=== PATIENT | female | born 1975 | race Caucasian/White ===

== ENCOUNTER 2018-10-26 08:20 | Emergency (ER) | payer BC ==
[2018-10-26] MEDS ORDERED: Ondansetron 4 MG/2 ML SDV IVPUSH ONE (08:51)
[2018-10-26] MEDS ORDERED: Famotidine 20 MG/2 ML SDV IVPUSH ONE (08:51)
[2018-10-26] MEDS ORDERED: Lactated Ringers 1,000 ML IV ONE (08:51)
[2018-10-26] MEDS ORDERED: Pantoprazole 40 MG Vial IVPUSH ONE (08:51)
--- NOTE | 2018-10-26 08:51 | EDM.PDOC ---
ED HPI GENERAL MEDICAL PROBLEM - General Chief Complaint: General Stated Complaint: right hip/abd pain Time Seen by Provider: 10/26/18 08:45 Source of Information: Reports: Patient, Family (), Old Records ([facility] chart/EMR), Other ([facility]MR) History Limitations: Reports: No Limitations - History of Present Illness INITIAL COMMENTS - FREE TEXT/NARRATIVE: The patient was brought to the emergency room via transport vehicle from [facility] for evaluation of progressive intermittent right-sided colic type symptoms with symptoms starting after she woke up at about 6 AM this morning. She currently rates her discomfort at 8/10. She denies any current gross hematuria or other UTI symptoms with history of recurrent urolithiasis in the past as below. She does have some mild nausea and diaphoresis with the above episodes similar to her previous attacks. No recent history of other abdominal pain, heartburn, emesis, diarrhea, melena, gross hematochezia, or any food intolerance, including fatty foods, etc.. The patient denies any chest pain/pressure, heart flutter, dizziness, orthostasis, orthopnea, diaphoresis, paresthesias, recent decreased exercise tolerance, or any other anginal-type symptoms. The patient also denies any recent fever, cough, wheezing, dyspnea, etc., although she has had some mild URI symptoms during the last week, which are improving. Onset: Today, Sudden Onset Date: 10/26/18 Onset Time: 06:00 Duration: Colic, Getting Worse, Intermittent Location: Reports: Abdomen. Denies: Head, Face, Neck, Chest, Back, Pelvis, Upper Extremity, Left, Upper Extremity, Right, Lower Extremity, Left, Lower Extremity, Right, Radiates to Quality: Reports: Same as Previous Episode, Sharp, Stabbing Severity: Moderate Improves with: Reports: None Worsens with: Reports: None Context: Reports: Other (As above). Denies: Sick Contact, Trauma Associated Symptoms: Reports: Nausea/Vomiting (No emesis). Denies: Confusion, Chest Pain, Cough, Diaphoresis, Fever/Chills, Headaches, Loss of Appetite, Malaise, Shortness of Breath, Syncope, Weakness Treatments NURSE PRACTITIONER: Reports: Other (see below) (None) Right Hip/abd Pain Score (Numeric/FACES): 8 (Right CVA) - Related Data Allergies Allergy/AdvReac Type Severity Reaction Status Date / Time hydralazine Allergy Hives Verified 10/26/18 08:49 lisinopril Allergy Cough Verified 10/26/18 08:49 Penicillins Allergy Hives Verified 10/26/18 08:28 Home Meds: Home Meds Losartan [Cozaar] 25 mg PO DAILY 10/26/18 [History] Metoprolol Tartrate [Lopressor] 12.5 mg PO Q12HR 10/26/18 [History] Tamsulosin [Tamsulosin 24 Hr] 0.4 mg PO DAILY #7 cap.er 10/26/18 [Rx] hydroCHLOROthiazide [Hydrochlorothiazide] 25 mg PO DAILY 10/26/18 [History] traMADol [Ultram] 50 mg PO Q4H PRN #10 tab 10/26/18 [Rx] Past Medical History HEENT History: Reports: Allergic Rhinitis, Impaired Vision, Other (See Below). Denies: Cataract, Glaucoma, Macular Degeneration, Otitis Media, Retinal Detachment Other HEENT History: She wears soft contact lenses and glasses. Cardiovascular History: Reports: Arrhythmia, Heart Murmur, High Cholesterol, Hypertension, Other (See Below). Denies: Afib, Aneurysm, Blood Clots/VTE/DVT, CAD, Heart Failure, CA, Pacemaker, PVD, Syncope Other Cardiovascular History: Complete right bundle branch block, both supraventricular and ventricular couplets with PACs, PVCs, trigeminy, and triplets. Mild diffuse valvular disease by echocardiogram 2017 with moderate aortic valve stenosis by clinical exam on 10/26/18. Dyslipidemia. Respiratory History: Reports: Intubation, Previous. Denies: Asthma, Bronchitis , Recurrent, COPD, Intubation, Difficult, PE, Pneumonia, Recurrent, Pneumothorax , Sleep Apnea, TB Gastrointestinal History: Reports: GERD. Denies: Celiac Disease, Cholelithiasis , Chronic Constipation, Chronic Diarrhea, Colon Polyp, Diverticulosis, Fecal Incontinence, Hepatitis, Inflammatory Bowel Disease, Irritable Bowel Syndrome, Jaundice, Pancreatitis, PUD Genitourinary History: Reports: Renal Calculus, Other (See Below). Denies: Acute Renal Failure, Chronic Renal Insuffiency, STD, Urinary Incontinence, UTI, Recurrent Other Genitourinary History: Recurrent right-sided urolithiasis with initial episode in 2005 requiring ablation as below and last episode in 2008 also requiring ablation. Stones were 1.31.5 cm in diameter. SIPHON OPERATOR History: Reports: , Other (See Below) : 3 Para: 3 LMP (Approximate): Other (See Below) Other SIPHON OPERATOR History: Current IUD. Preclampsia with last with secondary induction at 36 weeks gestation. Note gestational diabetes with first . Otherwise normal spontaneous vaginal deliveries. History of benign endometrioma requiring excision as below. Musculoskeletal History: Reports: Arthritis, Back Pain, Chronic, Osteoarthritis , Other (See Below). Denies: Fracture, Gout, Neck Pain, Chronic, RA, SLE Other Musculoskeletal History: Spinal stenosis and disc prolapse with left- sided radiculopathy requiring surgery as below. 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 Neurological History: Reports: Headaches, Chronic, Migraines. Denies: Cerebral Aneurysms, Concussion, CVA, Head Trauma, MS, Neuropathy, Diabetic, Neuropathy, Peripheral, Parkinson's, Seizure, TIA, Vertigo Psychiatric History: Reports: Anxiety, Depression. Denies: Abuse, Victim of, ADD, ADHD, Addiction, Psych Hospitalization(s), PTSD, Suicide Attempt, Suicidal Ideation Endocrine/Metabolic History: Reports: Diabetes, Gestational, Multinodular Thyroid, Obesity/BMI 30+, Other (See Below). Denies: Diabetes, Type I, Diabetes , Type II, Diabetes Mellitus, Type 3c, Hypothyroidism, IDDM Other Endocrine/Metabolic History: Benign thyroid nodules with subclinical hyperthyroidism. Hypoalbuminemia. Hematologic History: Reports: None. Denies: Anemia, Blood Transfusion(s), Iron Deficiency Immunologic History: Reports: None. Denies: AIDS, HIV, SLE Oncologic (Cancer) History: Reports: Basal Cell Carcinoma. Denies: Cervix, Colon, Hodgkin's Lymphoma, Leukemia, Lymphoma, Malignant Melanoma, Non-Hodgkin' s Lymphoma, Squamous Cell Carcinoma, Uterine Other Oncologic History: Basal cell carcinoma of the right cervical region and right thigh with excisions as below. Dermatologic History: Reports: Eczema, Other (See Below). Denies: Psoriasis Other Dermatologic History: Eczema as a child. Multiple papillomas. Basal cell carcinoma as above. - Infectious Disease History Infectious Disease History: Reports: Chicken Pox. Denies: C-Difficile, Measles , Meningitis, Mononucleosis, MRSA, Mumps, Pertussis (Whooping Cough), Rheumatic Fever, Rubella, Scarlet Fever, Shingles, TB, VRE - Past Surgical History Head Surgeries/Procedures: Reports: None HEENT Surgical History: Reports: Oral Surgery, Other (See Below). Denies: Adenoidectomy, Cataract Surgery, Eye Surgery, Laser Surgery, LASIK, Myringotomy w Tube(s), Naso-Sinus Surgery, Tonsillectomy Other HEENT Surgeries/Procedures: [place] teeth extraction x 4 in December 1990. Cardiovascular Surgical History: Reports: Varicose, Other (See Below) Other Cardiovascular Surgeries/Procedures: Cauterization of the varicose veins in the right leg in her late 20s. Respiratory Surgical History: Reports: None. Denies: Thoracentesis GI Surgical History: Reports: None. Denies: Appendectomy, Cholecystectomy, Colonoscopy, EGD, Hernia, Abdominal, Hernia, Inguinal, Hernia Repair/Other Female Surgical History: Reports: Breast Biopsy, Breast Reduction, Lithotripsy/ESWL, Other (See Below). Denies: Breast Reconstruction, Section, Cervical Cryotherapy, D&C, Dilitation & Evacuation, Salpingo- Oophorectomy, Tubal Ligation Other Female Surgeries/Procedures: Intrauterine excision of benign endometrioma in 1992. Right-sided lithotripsy in 2005 and 2008 with stent placement on those occasions. Bilateral breast reduction in 2009 with subsequent apparent repeat procedure required in 2011 secondary to infection. Left breast biopsy on 04/07/14 with left-sided breast lumpectomy on 06/22/13 both for benign disease. Endocrine Surgical History: Reports: Thyroid Biopsy, Other (See Below) Other Endocrine Surgeries/Procedures: Ultrasound guided thyroid biopsy on . Neurological Surgical History: Reports: Discectomy, Lumbar Spine, Spinal Fusion , Other (See Below). Denies: C-Spine, Laminectomy, Sacral Spine, Scoliosis, Thoracic Spine, Vertebroplasty Other Neurological Surgeries/Procedures: Spinal fusion from L2-L4 with concomitant discectomy on 11/11/17. Musculoskeletal Surgical History: Reports: None. Denies: Arthroscopic Procedure , Carpal Tunnel, Ganglion Cyst, Joint Replacement, ORIF, Shoulder Surgery Oncologic Surgical History: Reports: Other (See Below) Other Oncologic Surgeries/Procedures: Skin excisions of basal cell carcinoma as below. Dermatological Surgical History: Reports: Skin Biopsy, Other (See Below) Other Dermatological Surgeries/Procedures: Excision of basal cell carcinoma using the Mohs procedure from the right cervical region in 2016 with excision of basal cell carcinoma from the mid lateral right thigh on 05/12/13. Otherwise multiple benign biopsies and shave biopsies for benign disease. - Past Imaging History Past Imaging History: Reports: Cardiac Echo (Last echocardiogram on 11/19/16 with benign valvular disease and ejection fraction of 70%. Previous echocardiogram on 02/06/12. Otherwise stress echocardiogram as below.), CAT Scan (CT of the lumbar spine on 10/28/17. CT of the brain on 05/08/15. CT of the abdomen and pelvis on 02/11/06.), Event Monitor (02/19/17), Mammogram (Last on 05/14.), MRI (Lumbar spine on 07/16/17.), Stress Testing (Negative stress echocardiogram on 02/16/12.), Ultrasound (Thyroid ultrasound with concomitant biopsy on 06/01/17. Pelvic ultrasound on 10/25/14.), Other (See Below) (I-123 thyroid scan on 01/15/17.) Social & Family History - Family History HEENT: Reports: Glaucoma, Other (See Below). Denies: Macular Degeneration, Retinal Detachment Other HEENT Family History: Maternal grandmother with glaucoma. Cardiac: Reports: CAD, Heart Murmur, Hypertension, Stent, Other (See Below). Denies: Afib, Aneurysm, Arrhythmia, Blood Clots/VTE/DVT, Bypass, Heart Failure, High Cholesterol, CA, Pacemaker, PVD/COD Other Cardiac Family History: Maternal uncle with PTCA/stent 1 and valve replacement in his early 50s. Father with hypertension and unknown cardiac murmur. Respiratory: Reports: None. Denies: Asthma, COPD, PE, Pneumothorax, Sleep Apnea GI: Reports: None. Denies: Celiac Disease, Cholelithiasis, Colon Polyps, GERD, GI bleed, Inflammatory Bowel Disease, Irritable Bowel Syndrome, PUD : Reports: Renal Calculus, Other (See Below). Denies: Dialysis, Renal Disease /Insufficiency Other Family History: Maternal uncle with urolithiasis. OBGYN: Reports: None. Denies: Endometriosis, Recurrent Spontaneous Musculoskeletal: Reports: None. Denies: Arthritis, Gout, RA, SLE Neurological: Reports: None. Denies: Alzheimers Disease, CVA, Dementia, Migraines, MS, Parkinson's, Seizure, TIA Psychiatric: Reports: Anxiety, Depression, Psych Hospitalization(s), Suicide Attempt, Other (See Below). Denies: Abuse, Victim of, ADD, ADHD, PTSD Other Psychiatric Family History: Maternal with successful suicide in his early 20s Endocrine/Metabolic: Reports: Diabetes, type II, Other (See Below). Denies: Diabetes, Gestational, Diabetes, Type I, Diabetes Mellitus, Type 3c, Hypothyroidism, IDDM Other Endocrine/Metabolic Family History: Paternal grandfather and maternal uncle with AODM. Sister with hyperthyroidism. Hematologic: Reports: None. Denies: Anemia, SLE Immunologic: Reports: None. Denies: AIDS, HIV, SLE Dermatologic: Reports: None. Denies: Eczema, Psoriasis Oncologic: Reports: Leukemia, Other (See Below). Denies: Breast, Cervix, Colon , Hodgkin's Lymphoma, Lung, Lymphoma, Non-Hodgkin's Lymphoma, Ovarian, Uterine Other Oncologic Family History: Maternal uncle with fatal leukemia at age 72. - Tobacco Use Smoking Status *Q: Never Smoker Tobacco Use Within Last Twelve Months: No Used Tobacco, but Quit: No Smoking Cessation Information Provided To Patient: No Second Hand Smoke Exposure: Yes Source of Second Hand Smoke Exposure: smokes Second Hand Smoke Education Provided: Yes - Caffeine Use Caffeine Use: Reports: Coffee (2 cups per day), Tea (2 cups per week). Denies: Energy Drinks, Soda - Alcohol Use Alcohol Use History: Yes Days Per Week of Alcohol Use: 2 Number of Drinks Per Day: 3 Number of Drinks Per Day Comment: Usually wine. No previous DWIs, problems with alcohol abuse, etc. Total Drinks Per Week: 6 Alcohol Use in Last Twelve Months: Yes Alcohol Use Frequency: Weekly - Recreational Drug Use Recreational Drug Use: No Drug Use in Last 12 Months: No Recreational Drug Type: Reports: Marijuana/Hashish (Use between ages 17 and 18.) . 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 ED EXAM, GENERAL - Physical Exam Exam: See Below Exam Limited By: No Limitations General Appearance: Alert, WD/WN, No Apparent Distress Eye Exam: Bilateral Eye: EOMI, Normal Inspection (No nystagmus. Soft contact lenses bilaterally), PERRL Ears: Normal External Exam, Normal Canal, Hearing Grossly Normal, Normal TMs Nose: Normal Inspection, Normal Mucosa, No Blood Throat/Mouth: Normal Inspection, Normal Lips, Normal Teeth, Normal Gums, Normal Oropharynx, Normal Voice, No Airway Compromise. No: Dysphagia, Perioral Cyanosis Head: Atraumatic, Normocephalic. No: Facial Swelling, Facial Tenderness, Sinus Tenderness Neck: Supple, Non-Tender, Full Range of Motion, Carotid Bruit (Probable bilateral mild to moderate transmitted heart sounds). No: Lymphadenopathy (L), Lymphadenopathy (R), Thyromegaly Respiratory/Chest: No Respiratory Distress, Lungs Clear, Normal Breath Sounds, No Accessory Muscle Use, Chest Non-Tender. No: Pleural Rub, Retractions Cardiovascular: Normal Peripheral Pulses, No Edema, No Gallop, No JVD, No Rub, Bradycardia (Regular rhythm), Systolic Murmur (23/6 at the aortic valve). No: Diastolic Murmur, Gallop/S3, Gallop/S4, Extra Beats (At time of exam), Friction Rub Peripheral Pulses: 2+: Radial (L), Radial (R), Dorsalis Pedis (L), Dorsalis Pedis (R) GI/Abdominal: Normal Bowel Sounds, No Organomegaly, No Distention, No Abnormal Bruit, No Mass, Pelvis Stable, Tender (Mild nonspecific diffuse palpation pain including the right CVA area). No: Guarding, Rigid, Rebound (Female) Exam: Deferred Rectal (Female) Exam: Deferred Back Exam: Full Range of Motion, CVA Tenderness (R) (As above). No: CVA Tenderness (L), Muscle Spasm, Paraspinal Tenderness, Vertebral Tenderness Extremities: Normal Inspection, Normal Range of Motion, Non-Tender, No Pedal Edema, Normal Capillary Refill. No: Elder's Sign Neurological: Alert, Oriented, CN II-XII Intact, Normal Cognition, Normal Gait, Normal Reflexes (Negative Babinski's), No Motor/Sensory Deficits Psychiatric: Normal Affect, Normal Mood Skin Exam: Warm, Dry, Intact, Normal Color, No Rash, Stud(s) (Auricular bilateral), Other (Multiple benign papillomas particularly in the facial region) . No: Wound/Incision Lymphatic: No Adenopathy Course - Vital Signs Last Recorded V/S: Last Vital Signs Temp 36.8 C 10/26/18 08:20 Pulse 52 L 10/26/18 11:36 Resp 13 10/26/18 11:36 BP 123/81 10/26/18 11:36 Pulse Ox 97 10/26/18 11:36 Vital Signs - 24 hr 10/26/18 10/26/18 10/26/18 08:20 08:38 08:51 Temperature [ 36.8 C Oral] Pulse, 53 L 54 L 55 L Peripheral [ Right Brachial] Respiratory 20 20 20 Rate Blood Pressure 185/100 H 159/97 H 156/100 H [Right Upper Arm] O2 Sat by Pulse 99 96 97 Oximetry 10/26/18 10/26/18 10/26/18 09:06 09:21 09:36 Temperature [ Oral] Pulse, 56 L 56 L 68 Peripheral [ Right Brachial] Respiratory 18 18 18 Rate Blood Pressure 154/95 H 148/94 H 122/90 [Right Upper Arm] O2 Sat by Pulse 97 96 97 Oximetry 10/26/18 10/26/18 10/26/18 10:06 10:36 11:06 Temperature [ Oral] Pulse, 56 L 56 L 55 L Peripheral [ Right Brachial] Respiratory 14 16 13 Rate Blood Pressure 146/91 H 159/80 H 139/83 [Right Upper Arm] O2 Sat by Pulse 98 98 98 Oximetry 10/26/18 11:36 Temperature [ Oral] Pulse, 52 L Peripheral [ Right Brachial] Respiratory 13 Rate Blood Pressure 123/81 [Right Upper Arm] O2 Sat by Pulse 97 Oximetry - Orders/Labs/Meds Orders: Active Orders 24 hr Category Date Time Status Cardiac Monitoring [RC] . DIRECTED Care 10/26/18 09:24 Active Peripheral IV Care [RC] . DIRECTED Care 10/26/18 08:51 Active Nothing Per Oral Diet [DIET] Diet 10/26/18 Breakfast Active Abdomen Pelvis wo Cont [CT] Stat Exams 10/26/18 08:59 Taken CULTURE URINE [RM] Stat Lab 10/26/18 09:00 Received Sodium Chloride 0.9% [Saline Flush] Med 10/26/18 08:51 Active 10 ml FLUSH ASDIRECTED PRN Obtain Past Medical Record [OM.PC] Urgent Oth 10/26/18 08:51 Active Peripheral IV Insertion Adult [OM.PC] Stat Oth 10/26/18 08:51 Ordered Resuscitation Status Stat Resus Stat 10/26/18 08:51 Ordered Medication Orders Sodium Chloride (Saline Flush) 10 ml FLUSH ASDIRECTED PRN PRN Reason: Keep Vein Open Last Admin: 10/26/18 09:31 Dose: 10 ml Admin: 10/26/18 09:26 Dose: 10 ml Labs: Laboratory Tests 10/26/18 10/26/18 10/26/18 Range/Units 09:00 09:03 09:03 WBC 13.0 H (4.0-10.2) K/uL RBC 5.18 H (3.77-5.09) M/uL Hgb 16.5 H (11.7-15.5) g/dL Hct 49.7 H (34.0-46.0) % MCV 95.9 (84.0-98.0) fL MCH 31.9 (28.2-33.3) pg MCHC 33.2 (31.7-36.0) g/dL RDW 14.5 H (11.2-14.1) % Plt Count 159 (150-350) K/uL Neut % (Auto) 82.8 H (45.0-80.0) % Lymph % (Auto) 9.3 L (10.0-50.0) % [place] % (Auto) 7.1 (2.0-14.0) % Eos % (Auto) 0.6 (0.0-5.0) % Baso % (Auto) 0.2 (0.0-2.0) % Neut # (Auto) 10.75 H (1.40-7.00) K/uL Lymph # (Auto) 1.21 (0.50-3.50) K/uL [place] # (Auto) 0.92 (0.00-1.00) K/uL Eos # (Auto) 0.08 (0.00-0.50) K/uL Baso # (Auto) 0.03 (0.00-0.20) K/uL PT (9.5-12.0) SEC INR APTT (21.0-31.3) SEC Sodium (136-145) mmol/L Potassium (3.5-5.1) mmol/L Chloride (98-107) mmol/L Carbon Dioxide (21.0-32.0) mmol/L BUN (7-18) mg/dL Creatinine (0.51-1.17) mg/dL Est Cr Clr Drug Dosing mL/min Estimated GFR (MDRD) mL/min Glucose (74-106) mg/dL Lactic Acid (0.4-2.0) mmol/L Uric Acid (2.6-7.2) mg/dL Calcium (8.5-10.1) mg/dL Magnesium (1.8-2.4) mg/dL Total Bilirubin (0.2-1.0) mg/dL AST (15-37) U/L ALT (12-78) U/L Alkaline Phosphatase (46-116) IU/L Total Protein (6.4-8.2) g/dL Albumin (3.4-5.0) g/dL Amylase 37 (25-115) U/L Lipase (73-393) U/L HCG, Qual (NEGATIVE) Specimen Type Urinvoid Urine Color Yellow Urine Appearance Slightly cloudy Urine pH 6.5 (5.0-9.0) Ur Specific [place] 1.020 (1.005-1.030) Urine Protein 30 H (NEGATIVE) mg/dL Urine Glucose (UA) Negative (NEGATIVE) mg/dL Urine Ketones Negative (NEGATIVE) mg/dL Urine Occult Blood Large H (NEGATIVE) Urine Nitrite Negative (NEGATIVE) Urine Bilirubin Negative (NEGATIVE) Urine Urobilinogen 0.2 (0.2-1.0) E.U./dL Ur Leukocyte Esterase Small H (NEGATIVE) Urine RBC 50-75 H /HPF Urine WBC 5-10 H /HPF Ur Epithelial Cells Many H /LPF Urine Bacteria Moderate H (NONE TO FEW) /HPF 10/26/18 10/26/18 10/26/18 Range/Units 09:03 09:03 09:03 WBC (4.0-10.2) K/uL RBC (3.77-5.09) M/uL Hgb (11.7-15.5) g/dL Hct (34.0-46.0) % MCV (84.0-98.0) fL MCH (28.2-33.3) pg MCHC (31.7-36.0) g/dL RDW (11.2-14.1) % Plt Count (150-350) K/uL Neut % (Auto) (45.0-80.0) % Lymph % (Auto) (10.0-50.0) % [place] % (Auto) (2.0-14.0) % Eos % (Auto) (0.0-5.0) % Baso % (Auto) (0.0-2.0) % Neut # (Auto) (1.40-7.00) K/uL Lymph # (Auto) (0.50-3.50) K/uL [place] # (Auto) (0.00-1.00) K/uL Eos # (Auto) (0.00-0.50) K/uL Baso # (Auto) (0.00-0.20) K/uL PT 9.9 (9.5-12.0) SEC INR 0.9 APTT 26.4 (21.0-31.3) SEC Sodium 142 (136-145) mmol/L Potassium 4.3 (3.5-5.1) mmol/L Chloride 104 (98-107) mmol/L Carbon Dioxide 31.5 (21.0-32.0) mmol/L BUN 17 (7-18) mg/dL Creatinine 0.65 (0.51-1.17) mg/dL Est Cr Clr Drug Dosing 107.40 mL/min Estimated GFR (MDRD) > 60 mL/min Glucose 124 H (74-106) mg/dL Lactic Acid 1.3 (0.4-2.0) mmol/L Uric Acid 5.4 (2.6-7.2) mg/dL Calcium 8.7 (8.5-10.1) mg/dL Magnesium 1.8 (1.8-2.4) mg/dL Total Bilirubin 0.6 (0.2-1.0) mg/dL AST 29 (15-37) U/L ALT 33 (12-78) U/L Alkaline Phosphatase 85 (46-116) IU/L Total Protein 6.9 (6.4-8.2) g/dL Albumin 3.6 (3.4-5.0) g/dL Amylase (25-115) U/L Lipase 112 (73-393) U/L HCG, Qual (NEGATIVE) Specimen Type Urine Color Urine Appearance Urine pH (5.0-9.0) Ur Specific [place] (1.005-1.030) Urine Protein (NEGATIVE) mg/dL Urine Glucose (UA) (NEGATIVE) mg/dL Urine Ketones (NEGATIVE) mg/dL Urine Occult Blood (NEGATIVE) Urine Nitrite (NEGATIVE) Urine Bilirubin (NEGATIVE) Urine Urobilinogen (0.2-1.0) E.U./dL Ur Leukocyte Esterase (NEGATIVE) Urine RBC /HPF Urine WBC /HPF Ur Epithelial Cells /LPF Urine Bacteria (NONE TO FEW) /HPF 10/26/18 Range/Units 09:03 WBC (4.0-10.2) K/uL RBC (3.77-5.09) M/uL Hgb (11.7-15.5) g/dL Hct (34.0-46.0) % MCV (84.0-98.0) fL MCH (28.2-33.3) pg MCHC (31.7-36.0) g/dL RDW (11.2-14.1) % Plt Count (150-350) K/uL Neut % (Auto) (45.0-80.0) % Lymph % (Auto) (10.0-50.0) % [place] % (Auto) (2.0-14.0) % Eos % (Auto) (0.0-5.0) % Baso % (Auto) (0.0-2.0) % Neut # (Auto) (1.40-7.00) K/uL Lymph # (Auto) (0.50-3.50) K/uL [place] # (Auto) (0.00-1.00) K/uL Eos # (Auto) (0.00-0.50) K/uL Baso # (Auto) (0.00-0.20) K/uL PT (9.5-12.0) SEC INR APTT (21.0-31.3) SEC Sodium (136-145) mmol/L Potassium (3.5-5.1) mmol/L Chloride (98-107) mmol/L Carbon Dioxide (21.0-32.0) mmol/L BUN (7-18) mg/dL Creatinine (0.51-1.17) mg/dL Est Cr Clr Drug Dosing mL/min Estimated GFR (MDRD) mL/min Glucose (74-106) mg/dL Lactic Acid (0.4-2.0) mmol/L Uric Acid (2.6-7.2) mg/dL Calcium (8.5-10.1) mg/dL Magnesium (1.8-2.4) mg/dL Total Bilirubin (0.2-1.0) mg/dL AST (15-37) U/L ALT (12-78) U/L Alkaline Phosphatase (46-116) IU/L Total Protein (6.4-8.2) g/dL Albumin (3.4-5.0) g/dL Amylase (25-115) U/L Lipase (73-393) U/L HCG, Qual Negative (NEGATIVE) Specimen Type Urine Color Urine Appearance Urine pH (5.0-9.0) Ur Specific [place] (1.005-1.030) Urine Protein (NEGATIVE) mg/dL Urine Glucose (UA) (NEGATIVE) mg/dL Urine Ketones (NEGATIVE) mg/dL Urine Occult Blood (NEGATIVE) Urine Nitrite (NEGATIVE) Urine Bilirubin (NEGATIVE) Urine Urobilinogen (0.2-1.0) E.U./dL Ur Leukocyte Esterase (NEGATIVE) Urine RBC /HPF Urine WBC /HPF Ur Epithelial Cells /LPF Urine Bacteria (NONE TO FEW) /HPF Urine specimen set up for culture and sensitivity Meds: Medications Generic Name Dose Route Start Last Admin Trade Name Freq PRN Reason Stop Dose Admin Sodium Chloride 10 ml 10/26/18 08:51 10/26/18 09:31 Saline Flush FLUSH 10 ml ASDIRECTED PRN Administration Keep Vein Open Discontinued Medications Generic Name Dose Route Start Last Admin Trade Name Freq PRN Reason Stop Dose Admin Famotidine 40 mg 10/26/18 08:51 10/26/18 09:31 Pepcid IVPUSH 10/26/18 08:52 40 mg ONETIME ONE Administration Lactated Ringer's 1,000 mls @ 999 mls/hr 10/26/18 08:51 10/26/18 09:33 Ringers, Lactated IV 10/26/18 09:51 999 mls/hr .BOLUS ONE Administration Ketorolac Tromethamine 30 mg 10/26/18 08:54 10/26/18 09:26 Toradol IVPUSH 10/26/18 08:55 30 mg ONETIME ONE Administration Ondansetron HCl 4 mg 10/26/18 08:51 10/26/18 09:23 Zofran IVPUSH 10/26/18 08:52 4 mg ONETIME ONE Administration Pantoprazole Sodium 40 mg 10/26/18 08:51 10/26/18 09:29 Protonix Iv IVPUSH 10/26/18 08:52 40 mg ONETIME ONE Administration Tamsulosin HCl 0.8 mg 10/26/18 08:54 10/26/18 09:32 Flomax PO 10/26/18 08:55 0.8 mg ONETIME ONE Administration - Radiology Interpretation Free Text/Narrative:: manager monitoring shows some mild sinus bradycardia in the high 50s with average heart rate in the 60s and no ectopy or arrhythmia CT scan of the abdomen and pelvis without contrast shows evidence of a 6 mm proximal right ureteral stone with some mild borderline hydronephrosis. Otherwise additional incidental findings include multiple nonobstructive bilateral urolithiasis/nephrolithiasis, newly diagnosed 2 mm left lower lobe pulmonary nodule, bilateral benign renal cysts, and right sided hepatic hypodensities 2 of unknown character injuring 3 cm and 4 cm in diameter with follow-up CT versus MRI recommended. Incidental small hiatal hernia also noted. NOTE: Preliminary verbal report not received from radiologist despite my previous request. Departure - Departure Time of Disposition: 12:30 Disposition: Home, Self-Care 01 Clinical Impression: Bradycardia, Subclinical hyperthyroidism, Dyslipidemia, Mixed anxiety depressive disorder, Tobacco abuse counseling, Heart murmur, Hepatic cyst, Renal cyst, Pulmonary nodule, Hiatal hernia Urolithiasis Qualifiers: Urinary calculus location: ureter Qualified Code(s): N20.1 - Calculus of ureter Hypertension Qualifiers: Hypertension type: essential hypertension Qualified Code(s): I10 - Essential ( primary) hypertension Osteoarthritis Qualifiers: Osteoarthritis location: multiple joints Osteoarthritis type: primary Qualified Code(s): M15.0 - Primary generalized (osteo)arthritis Cholelithiasis Qualifiers: Cholelithiasis location: gallbladder Cholecystitis acuity: unspecified acuity Biliary obstruction: without biliary obstruction - Discharge Information *PRESCRIPTION DRUG MONITORING PROGRAM REVIEWED*: Yes *COPY OF PRESCRIPTION DRUG MONITORING REPORT IN PATIENT FELICIANO: Yes Prescriptions: Tamsulosin [Tamsulosin 24 Hr] 0.4 mg PO DAILY #7 cap.er traMADol [Ultram] 50 mg PO Q4H PRN #10 tab PRN Reason: Pain (Severe 7-10) Instructions: Kidney Stones, [id number] Referrals: PCP,Unknown [Primary Care Provider] - Forms: ED Department Discharge, ED Return to Work/School Form Additional Instructions: 1. Followup with your regular provider in 10-14 days or reevaluation with recommended repeat CBC and basic metabolic panel as directed. Bring these discharge instructions with you to that visit. 2. Tylenol 650 mg by mouth every 4 hours and/or OTC ibuprofen 2-3 tabs by mouth every 6 hours with food as directed./needed. You may stagger these medications for 48-72 hours only, which essentially means that you are receiving a pain medication about every 2 hours. Extensive ibuprofen in 6 hours as needed secondary to medications given in the emergency room. 3. Work excuse- See Form 4. Stop all tobacco exposure ASHLEIGH as directed with counselling, information, etc. given 5. Strain all urine and bring stone to your regular provider or this facility as directed for further stone analysis. 6. Encourage oral fluids as directed 7. Immediately after this visit verify that your cellular telephone's voicemail has been activated and is empty. Also verify that your home telephone 's answering machine is operating properly and has space to receive messages. Note that it is sometimes necessary for us to be able to contact you at a later date to discuss your medical care. 8. Please remember that we are ALWAYS here for you and want to answer any questions you may have. Feel free to call the hospital any time and we call you back ASHLEIGH. 9. Discuss with your regular provider possibility of cardiology referral and/ or repeat echocardiogram secondary to progressive valvular disease by my clinical exam today. 10. Initiate Flomax therapy tomorrow with this to be discontinued once you have past your kidney stone. 11. Discuss scheduling CT versus MRI of the chest, abdomen, and pelvis as follow -up. Newly diagnosed right lower lobe pulmonary nodule, renal cysts, and hepatic nodules by today's CT scan. 12. Use Ultram with extreme discretion with sedation, dry mouth, and confusion precautions as discussed - Problem List & Annotations (1) Urolithiasis SNOMED Code(s): 98203333, 768971067 Code(s): N20.9 - URINARY CALCULUS, UNSPECIFIED Status: Acute Priority: High Current Visit: Yes Onset Date: 10/26/18 Annotation/Comment:: CT scan of the results as above. Overall good results with treatment in the emergency room. Close follow-up by regular provider as per discharge instructions. Work Excuse provided. Note mild leukocytosis likely secondary to stress-reaction with no history of fever or other significant infection. Urine specimen set up for culture and sensitivity. Qualifiers: Urinary calculus location: ureter Qualified Code(s): N20.1 - Calculus of ureter (2) Hepatic cyst SNOMED Code(s): 94685142 Code(s): K76.89 - OTHER SPECIFIED DISEASES OF LIVER Status: Acute Priority: High Current Visit: Yes Onset Date: 10/26/18 Annotation/Comment: : Hepatic echodensities [address] scan as above. Follow-up recommended to determine whether they're benign nodules versus cysts, etc. (3) Pulmonary nodule SNOMED Code(s): 477322496 Code(s): R91.1 - SOLITARY PULMONARY NODULE Status: Acute Priority: High Current Visit: Yes Onset Date: 10/26/18 Annotation/Comment:: Incidental finding by today's CT scan as above. Close follow-up as per discharge instructions. Avoidance of tobacco exposure, etc. extensively discussed today. (4) Heart murmur SNOMED Code(s): 26293737 Code(s): R01.1 - CARDIAC MURMUR, UNSPECIFIED Status: Chronic Priority: High Current Visit: Yes Annotation/Comment:: Note progressive aortic valve stenosis by my clinical exam today. Last echocardiogram results from 11/19/16 were reviewed by me today with only mild diffuse valvular disease at that time. Patient is currently nonsymptomatic. 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 (5) Hypertension SNOMED Code(s): 96557179 Code(s): I10 - ESSENTIAL (PRIMARY) HYPERTENSION Status: Chronic Priority : Medium Current Visit: Yes Annotation/Comment:: Blood pressure somewhat elevated today secondary to her discomfort. Otherwise overall stable in the emergency room. Continue to observe closely for regular provider. Qualifiers: Hypertension type: essential hypertension Qualified Code(s): I10 - Essential (primary) hypertension (6) Bradycardia SNOMED Code(s): 41601320 Code(s): R00.1 - BRADYCARDIA, UNSPECIFIED Status: Chronic Priority: Medium Current Visit: Yes Annotation/Comment:: Borderline intermittent bradycardia today with known previous history of bradycardia and cardiac arrhythmia as above, including PVCs, PACs, right bundle branch block, etc. No chest pain or anginal type symptoms (7) Dyslipidemia SNOMED Code(s): 224200760 Code(s): E78.5 - HYPERLIPIDEMIA, UNSPECIFIED Status: Chronic Priority: Medium Current Visit: Yes Annotation/Comment:: Currently not under medical therapy. Weight loss in moderation advisable. Continue to closely follow through her regular provider. (8) Mixed anxiety depressive disorder SNOMED Code(s): 408261886 Code(s): F41.8 - OTHER SPECIFIED ANXIETY DISORDERS Status: Chronic Priority: Medium Current Visit: Yes Annotation/Comment:: Stable by history. (9) Osteoarthritis SNOMED Code(s): 798247848 Code(s): M19.90 - UNSPECIFIED OSTEOARTHRITIS, UNSPECIFIED SITE Status: Chronic Priority: Medium Current Visit: Yes Annotation/Comment:: Stable by history, including after recent back surgery as above. Qualifiers: Osteoarthritis location: multiple joints Osteoarthritis type: primary Qualified Code(s): M15.0 - Primary generalized (osteo)arthritis (10) Subclinical hyperthyroidism SNOMED Code(s): 753963748 Code(s): E05.90 - THYROTOXICOSIS, UNSP WITHOUT THYROTOXIC CRISIS OR STORM Status: Chronic Priority: Medium Current Visit: Yes Annotation/Comment:: Stable by history with no clinical symptoms at this time. Thyroid ultrasound scheduled at [facility] on 10/25/18. (11) Tobacco abuse counseling SNOMED Code(s): 415785572, 209896780, 851503437 Code(s): Z71.6 - TOBACCO ABUSE COUNSELING Status: Chronic Priority: Medium Current Visit: Yes Annotation/Comment:: Tobacco cessation for her strongly encouraged with information provided. (12) Cholelithiasis SNOMED Code(s): 919374593 Code(s): K80.20 - CALCULUS OF GALLBLADDER W/O CHOLECYSTITIS W/O OBSTRUCTION Status: Acute Priority: Medium Current Visit: Yes Onset Date: 10/26/18 Annotation/Comment:: Incidental finding by today's CT scan as above. Nonsymptomatic. Qualifiers: Cholelithiasis location: gallbladder Cholecystitis acuity: unspecified acuity Biliary obstruction: without biliary obstruction (13) Hiatal hernia SNOMED Code(s): 92233418 Code(s): K44.9 - DIAPHRAGMATIC HERNIA WITHOUT OBSTRUCTION OR GANGRENE Status: Acute Priority: Medium Current Visit: Yes Onset Date: 10/26/18 Annotation/Comment:: She does have history of GERD. Otherwise nonsymptomatic at this time. (14) Renal cyst SNOMED Code(s): 404380399 Code(s): N28.1 - CYST OF KIDNEY, ACQUIRED Status: Acute Priority: Medium Current Visit: Yes Onset Date: 10/26/18 Annotation/Comment:: Incidental findings today. Observe for now with repeat MRI versus CT scan as above for evaluation of other lesions as above. - Problem List Review Problem List Initiated/Reviewed/Updated: Yes - My Orders Last 24 Hours: My Active Orders 10/26/18 08:51 Peripheral IV Care [RC] . DIRECTED Sodium Chloride 0.9% [Saline Flush] 10 ml FLUSH ASDIRECTED PRN Obtain Past Medical Record [OM.PC] Urgent Peripheral IV Insertion Adult [OM.PC] Stat Resuscitation Status Stat 10/26/18 08:59 Abdomen Pelvis wo Cont [CT] Stat 10/26/18 09:00 CULTURE URINE [RM] Stat 10/26/18 09:24 Cardiac Monitoring [RC] . DIRECTED 10/26/18 Breakfast Nothing Per Oral Diet [DIET] - Assessment/Plan Last 24 Hours: My Active Orders 10/26/18 08:51 Peripheral IV Care [RC] . DIRECTED Sodium Chloride 0.9% [Saline Flush] 10 ml FLUSH ASDIRECTED PRN Obtain Past Medical Record [OM.PC] Urgent Peripheral IV Insertion Adult [OM.PC] Stat Resuscitation Status Stat 10/26/18 08:59 Abdomen Pelvis wo Cont [CT] Stat 10/26/18 09:00 CULTURE URINE [RM] Stat 10/26/18 09:24 Cardiac Monitoring [RC] . DIRECTED 10/26/18 Breakfast Nothing Per Oral Diet [DIET] Assessment:: As above Plan: As above. Extensive precautions were given to the patient and her , who are in agreement with the treatment plan. See Patient Instructions for further treatment and plan.
[2018-10-26] MEDS ORDERED: Ketorolac 30 MG/ML SDV IVPUSH ONE (08:54)
[2018-10-26] MEDS ORDERED: Tamsulosin 0.4 MG Cap.ER PO ONE (08:54)
[2018-10-26] MEDS: Sodium Chloride 0.9% 10 ML Syringe FLUSH PRN ×2 (09:26→09:31)
[2018-10-26 09:29] LABS: CHLORIDE,CL 104 mmol/L (98-107); SODIUM,NA 142 mmol/L (136-145)
== END 2018-10-26 12:45 | disposition home or self-care (01) ==
LOC: LL.ED 08:20
DX: N13.2 Hydronephrosis with renal and ureteral calculous obstruction (principal); R00.1 Bradycardia, unspecified; E05.90 Thyrotoxicosis, unspecified without thyrotoxic crisis or storm; E78.5 Hyperlipidemia, unspecified; K76.89 Other specified diseases of liver; N28.1 Cyst of kidney, acquired; R91.1 Solitary pulmonary nodule; K44.9 Diaphragmatic hernia without obstruction or gangrene; F41.9 Anxiety disorder, unspecified; Z88.8 Allergy status to other drugs, medicaments and biological substances; Z79.899 Other long term (current) drug therapy; F41.8 Other specified anxiety disorders; Z71.6 Tobacco abuse counseling
CPT/HCPCS: 36415; 74176; 80053; 81001; 82150; 83605; 83690; 83735; 84550; 84703; 85025; 85610; 85730; 87086; 96361; 96374; 96375; 99284; A9270; C9113; J1885; J2405; J3490; J7120

== ENCOUNTER 2018-10-28 21:26 | Observation (INO) | payer BC ==
--- NOTE | 2018-10-28 21:44 | EDM.PDOC ---
ED HPI GENERAL MEDICAL PROBLEM - General Chief Complaint: Flank Pain Stated Complaint: Right flank pain Time Seen by Provider: 10/28/18 21:40 Source of Information: Reports: Family (), Old Records ([facility] chart/EMR), Other ([place] EMR reviewed on 10/26/18) History Limitations: Reports: No Limitations - History of Present Illness INITIAL COMMENTS - FREE TEXT/NARRATIVE: The patient was brought to the emergency room via private automobile by her for evaluation of returned severe colic type symptoms, which she has been rating at 810. Symptoms reoccurred at 14:00 hours this afternoon with 50 mg of Ultram taken at that time and at 20:00 hours this evening. The patient did take ibuprofen this morning and has been compliant with her previously prescribed Flomax therapy. She denies any gross hematuria or other UTI symptoms. There has been some moderate nausea and diaphoresis with her colic episodes, however no emesis to this point. No recent history of other abdominal pain, heartburn, diarrhea, melena, gross hematochezia, or any food intolerance, including fatty foods, etc. with normal bowel movement yesterday evening. The patient also denies any recent fever, cough, wheezing, dyspnea, etc.. The patient denies any chest pain/pressure, heart flutter, dizziness, orthostasis, orthopnea, diaphoresis, paresthesias, recent decreased exercise tolerance, or any other anginal-type symptoms. Note that I did evaluate the patient for similar type symptoms in the emergency room on 10/26/18. Onset: Today, Gradual Onset Date: 10/28/18 Onset Time: 14:00 Duration: Getting Worse, Intermittent Location: Reports: Head, Face, Neck, Chest, Abdomen (Right CVA to right inguinal /hip region), Lower Extremity, Right (As above), Radiates to (As above). Denies : Back, Pelvis, Upper Extremity, Left, Upper Extremity, Right, Lower Extremity, Left Quality: Reports: Same as Previous Episode, Sharp Severity: Severe Improves with: Reports: None Worsens with: Reports: None Context: Reports: Other (As above). Denies: Sick Contact, Trauma Associated Symptoms: Reports: Diaphoresis, Nausea/Vomiting (As above). Denies: Confusion, Chest Pain, Cough, Fever/Chills, Headaches, Loss of Appetite, Malaise , Seizure, Shortness of Breath, Syncope, Weakness Right Flank Pain Score (Numeric/FACES): 8 - Related Data Allergies Allergy/AdvReac Type Severity Reaction Status Date / Time hydralazine Allergy Hives Verified 10/28/18 21:32 lisinopril Allergy Cough Verified 10/28/18 21:32 Penicillins Allergy Hives Verified 10/28/18 21:32 Home Meds: Home Meds Losartan [Cozaar] 25 mg PO DAILY 10/26/18 [History] Metoprolol Tartrate [Lopressor] 12.5 mg PO Q12HR 10/26/18 [History] Tamsulosin [Tamsulosin 24 Hr] 0.4 mg PO DAILY #7 cap.er 10/26/18 [Rx] hydroCHLOROthiazide [Hydrochlorothiazide] 25 mg PO DAILY 10/26/18 [History] traMADol [Ultram] 50 mg PO Q4H PRN #10 tab 10/26/18 [Rx] Past Medical History HEENT History: Reports: Allergic Rhinitis, Impaired Vision, Other (See Below). Denies: Cataract, Glaucoma, Macular Degeneration, Otitis Media, Retinal Detachment Other HEENT History: She wears soft contact lenses and glasses. Cardiovascular History: Reports: Arrhythmia, Heart Murmur, High Cholesterol, Hypertension, Other (See Below). Denies: Afib, Aneurysm, Blood Clots/VTE/DVT, CAD, Heart Failure, DE, Pacemaker, PVD, Syncope Other Cardiovascular History: Complete right bundle branch block, both supraventricular and ventricular couplets with PACs, PVCs, trigeminy, and triplets. Mild diffuse valvular disease by echocardiogram 2017 with moderate aortic valve stenosis by clinical exam on 10/26/18. Dyslipidemia. Respiratory History: Reports: Intubation, Previous, Other (See Below). Denies: Asthma, Bronchitis, Recurrent, COPD, Intubation, Difficult, PE, Pneumonia, Recurrent, Pneumothorax, Sleep Apnea, TB Other Respiratory History: Left lower lobe pulmonary nodule by CT scan on . Gastrointestinal History: Reports: Cholelithiasis, GERD, Hiatal Hernia, Other ( See Below). Denies: Celiac Disease, Chronic Constipation, Chronic Diarrhea, Colon Polyp, Diverticulosis, Fecal Incontinence, Hepatitis, Inflammatory Bowel Disease, Irritable Bowel Syndrome, Jaundice, Pancreatitis, PUD Other Gastrointestinal History: Nonspecific hepatic hyperdensities 2 with additional small hiatal hernia and nonsymptomatic possible mild cholelithiasis by CT scan on 10/26/18. Genitourinary History: Reports: Hydronephrosis, Renal Calculus, Other (See Below ). Denies: Acute Renal Failure, Chronic Renal Insuffiency, STD, Urinary Incontinence, UTI, Recurrent Other Genitourinary History: Recurrent right-sided urolithiasis with initial episode in 2005 requiring ablation as below and last episode in 2008 also requiring ablation. Stones were 1.31.5 cm in diameter. Note mild bilateral nephrolithiasis and urolithiasis with 6 mm proximal right ureteral stone with borderline mild hydronephrosis and bilateral renal cysts by CT scan on 10/26/18. [employer] History: Reports: , Other (See Below). Denies: Dysfunctional Uterine Bleeding, Endometriosis : 3 Para: 3 LMP (Approximate): Other (See Below) Other [employer]Y IN[employer] History: Current IUD with no current menses. Preclampsia with last with secondary induction at 36 weeks gestation. Note gestational diabetes with first . Otherwise normal spontaneous vaginal deliveries. History of benign endometrioma requiring excision as below. Musculoskeletal History: Reports: Arthritis, Back Pain, Chronic, Osteoarthritis , Other (See Below). Denies: Fracture, Gout, Neck Pain, Chronic, RA, SLE Other Musculoskeletal History: Spinal stenosis and disc prolapse with left- sided radiculopathy requiring surgery as below. 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 Neurological History: Reports: Headaches, Chronic, Migraines. Denies: Cerebral Aneurysms, Concussion, CVA, Head Trauma, MS, Neuropathy, Diabetic, Neuropathy, Peripheral, Parkinson's, Seizure, TIA, Vertigo Psychiatric History: Reports: Anxiety, Depression. Denies: Abuse, Victim of, ADD, ADHD, Addiction, Psych Hospitalization(s), PTSD, Suicide Attempt, Suicidal Ideation Endocrine/Metabolic History: Reports: Diabetes, Gestational, Multinodular Thyroid, Obesity/BMI 30+, Other (See Below). Denies: Diabetes, Type I, Diabetes , Type II, Diabetes Mellitus, Type 3c, Hypothyroidism, IDDM Other Endocrine/Metabolic History: Benign thyroid nodules with subclinical hyperthyroidism. Hypoalbuminemia. Hematologic History: Reports: None. Denies: Anemia, Blood Transfusion(s), Iron Deficiency Immunologic History: Reports: None. Denies: AIDS, HIV, SLE Oncologic (Cancer) History: Reports: Basal Cell Carcinoma. Denies: Cervix, Colon, Hodgkin's Lymphoma, Leukemia, Lymphoma, Malignant Melanoma, Non-Hodgkin' s Lymphoma, Squamous Cell Carcinoma, Uterine Other Oncologic History: Basal cell carcinoma of the right cervical region and right thigh with excisions as below. Dermatologic History: Reports: Eczema, Other (See Below). Denies: Psoriasis Other Dermatologic History: Eczema as a child. Multiple papillomas. Basal cell carcinoma as above. - Infectious Disease History Infectious Disease History: Reports: Chicken Pox. Denies: C-Difficile, Measles , Meningitis, Mononucleosis, MRSA, Mumps, Pertussis (Whooping Cough), Rheumatic Fever, Rubella, Scarlet Fever, Shingles, TB, VRE - Past Surgical History Head Surgeries/Procedures: Reports: None HEENT Surgical History: Reports: Oral Surgery, Other (See Below). Denies: Adenoidectomy, Cataract Surgery, Eye Surgery, Laser Surgery, LASIK, Myringotomy w Tube(s), Naso-Sinus Surgery, Tonsillectomy Other HEENT Surgeries/Procedures: [place] teeth extraction x 4 in December 1990. Cardiovascular Surgical History: Reports: Varicose, Other (See Below) Other Cardiovascular Surgeries/Procedures: Cauterization of the varicose veins in the right leg in her late 20s. Respiratory Surgical History: Reports: None. Denies: Thoracentesis GI Surgical History: Reports: None. Denies: Appendectomy, Cholecystectomy, Colonoscopy, EGD, Hernia, Abdominal, Hernia, Inguinal, Hernia Repair/Other Female Surgical History: Reports: Breast Biopsy, Breast Reduction, Lithotripsy/ESWL, Other (See Below). Denies: Breast Reconstruction, Section, Cervical Cryotherapy, D&C, Dilitation & Evacuation, Salpingo- Oophorectomy, Tubal Ligation Other Female Surgeries/Procedures: Intrauterine excision of benign endometrioma in 1992. Right-sided lithotripsy in 2005 and 2008 with stent placement on those occasions. Bilateral breast reduction in 2009 with subsequent apparent repeat procedure bilaterally required in 2011 secondary to infection. Left breast biopsy on 04/07/14 with left-sided breast lumpectomy on both for benign disease. Endocrine Surgical History: Reports: Thyroid Biopsy, Other (See Below) Other Endocrine Surgeries/Procedures: Ultrasound guided thyroid biopsy on . Neurological Surgical History: Reports: Discectomy, Lumbar Spine, Spinal Fusion , Other (See Below). Denies: C-Spine, Laminectomy, Sacral Spine, Scoliosis, Thoracic Spine, Vertebroplasty Other Neurological Surgeries/Procedures: Spinal fusion from L2-L4 with concomitant discectomy on 11/11/17. Musculoskeletal Surgical History: Reports: None. Denies: Arthroscopic Procedure , Carpal Tunnel, Ganglion Cyst, Joint Replacement, ORIF, Shoulder Surgery Oncologic Surgical History: Reports: Other (See Below) Other Oncologic Surgeries/Procedures: Skin excisions of basal cell carcinoma as below. Dermatological Surgical History: Reports: Skin Biopsy, Other (See Below) Other Dermatological Surgeries/Procedures: Excision of basal cell carcinoma using the Mohs procedure from the right cervical region in 2016 with excision of basal cell carcinoma from the mid lateral right thigh on 05/12/13. Otherwise multiple benign biopsies and shave biopsies for benign disease. - Past Imaging History Past Imaging History: Reports: Cardiac Echo (Last echocardiogram on 11/19/16 with benign valvular disease and ejection fraction of 70%. Previous echocardiogram on 02/06/12. Otherwise stress echocardiogram as below.), CAT Scan (CT scan of the abdomen and pelvis without contrast using stone protocol on 10/26. CT of the lumbar spine on 10/28/17. CT of the brain on 05/08/15. CT of the abdomen and pelvis on 02/11/06.), Event Monitor (02/19/17), Mammogram (Last on 05/14.), MRI (Lumbar spine on 07/16/17.), Stress Testing (Negative stress echocardiogram on 02/16/12.), Ultrasound (Thyroid ultrasound with concomitant biopsy on 06/01/17. Pelvic ultrasound on 10/25/14.), Other (See Below) (I-123 thyroid scan on 01/15/17.) Social & Family History - Family History HEENT: Reports: Glaucoma, Other (See Below). Denies: Macular Degeneration, Retinal Detachment Other HEENT Family History: Maternal grandmother with glaucoma. Cardiac: Reports: CAD, Heart Murmur, Hypertension, Stent, Other (See Below). Denies: Afib, Aneurysm, Arrhythmia, Blood Clots/VTE/DVT, Bypass, Heart Failure, High Cholesterol, DE, Pacemaker, PVD/COD Other Cardiac Family History: Maternal uncle with PTCA/stent 1 and valve replacement in his early 50s. Father with hypertension and unknown cardiac murmur. Respiratory: Reports: None. Denies: Asthma, COPD, PE, Pneumothorax, Sleep Apnea GI: Reports: None. Denies: Celiac Disease, Cholelithiasis, Colon Polyps, GERD, GI bleed, Inflammatory Bowel Disease, Irritable Bowel Syndrome, PUD : Reports: Renal Calculus, Other (See Below). Denies: Dialysis, Renal Disease /Insufficiency Other Family History: Maternal uncle with urolithiasis. OBGYN: Reports: None. Denies: Endometriosis, Recurrent Spontaneous Musculoskeletal: Reports: None. Denies: Arthritis, Gout, RA, SLE Neurological: Reports: None. Denies: Alzheimers Disease, CVA, Dementia, Migraines, MS, Parkinson's, Seizure, TIA Psychiatric: Reports: Anxiety, Depression, Psych Hospitalization(s), Suicide Attempt, Other (See Below). Denies: Abuse, Victim of, ADD, ADHD, PTSD Other Psychiatric Family History: Maternal with successful suicide in his early 20s Endocrine/Metabolic: Reports: Diabetes, type II, Other (See Below). Denies: Diabetes, Gestational, Diabetes, Type I, Diabetes Mellitus, Type 3c, Hypothyroidism, IDDM Other Endocrine/Metabolic Family History: Paternal grandfather and maternal uncle with AODM. Sister with hyperthyroidism. Hematologic: Reports: None. Denies: Anemia, SLE Immunologic: Reports: None. Denies: AIDS, HIV, SLE Dermatologic: Reports: None. Denies: Eczema, Psoriasis Oncologic: Reports: Leukemia, Other (See Below). Denies: Breast, Cervix, Colon , Hodgkin's Lymphoma, Lung, Lymphoma, Non-Hodgkin's Lymphoma, Ovarian, Uterine Other Oncologic Family History: Maternal uncle with fatal leukemia at age 72. - Tobacco Use Smoking Status *Q: Never Smoker Tobacco Use Within Last Twelve Months: No Used Tobacco, but Quit: No Smoking Cessation Information Provided To Patient: No Second Hand Smoke Exposure: Yes Source of Second Hand Smoke Exposure: smokes Second Hand Smoke Education Provided: Yes - Caffeine Use Caffeine Use: Reports: Coffee (2 cups per day), Tea (2 cups per week). Denies: Energy Drinks, Soda - Alcohol Use Alcohol Use History: Yes Days Per Week of Alcohol Use: 2 Number of Drinks Per Day: 3 Number of Drinks Per Day Comment: Usually wine. No previous DWIs, problems with alcohol abuse, etc. Total Drinks Per Week: 6 Alcohol Use in Last Twelve Months: Yes - Recreational Drug Use Recreational Drug Type: Reports: Marijuana/Hashish (Between ages 17 and 18.). 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 ED EXAM, RENAL/ - Physical Exam Exam: See Below Exam Limited By: No Limitations General Appearance: Alert, WD/WN, No Apparent Distress Eye Exam: Bilateral Eye: EOMI, Normal Inspection (Patient wearing glasses. No nystagmus), PERRL Ears: Normal External Exam, Normal Canal, Hearing Grossly Normal, Normal TMs Nose: Normal Inspection, Normal Mucosa, No Blood Throat/Mouth: Normal Inspection, Normal Lips, Normal Teeth, Normal Gums, Normal Oropharynx, Normal Voice, No Airway Compromise. No: Dysphagia, Perioral Cyanosis Head: Atraumatic, Normocephalic. No: Facial Swelling, Facial Tenderness, Sinus Tenderness Neck: Supple, Non-Tender, Full Range of Motion, Carotid Bruit (Probable moderate transmitted heart sounds). No: Lymphadenopathy (L), Lymphadenopathy (R ), Thyromegaly Respiratory/Chest: No Respiratory Distress, Lungs Clear, Normal Breath Sounds, No Accessory Muscle Use, Chest Non-Tender. No: Pleural Rub, Retractions Cardiovascular: Normal Peripheral Pulses, Regular Rate, Rhythm, No Edema, No Gallop, No JVD, No Murmur, No Rub. No: Gallop/S3, Gallop/S4, Friction Rub GI/Abdominal: Normal Bowel Sounds, No Organomegaly, No Distention, No Abnormal Bruit, No Mass, Pelvis Stable, Tender (Mild right CVA tenderness). No: Guarding , Rebound (Female) Exam: Deferred Rectal (Female) Exam: Deferred Back Exam: Full Range of Motion, CVA Tenderness (R). No: CVA Tenderness (L), Muscle Spasm Extremities: Normal Inspection, Normal Range of Motion, Non-Tender, No Pedal Edema, Normal Capillary Refill. No: Elder's Sign Neurological: Alert, Oriented, CN II-XII Intact, Normal Cognition, Normal Gait, Normal Reflexes (Negative Babinski's), No Motor/Sensory Deficits Psychiatric: Normal Affect, Normal Mood Skin Exam: Warm, Dry, Intact, Normal Color, No Rash, Stud(s). No: Diaphoretic, Ecchymosis, Jaundice, Pallor, Petechiae, Wound/Incision Lymphatic: No Adenopathy Course - Vital Signs Last Recorded V/S: Last Vital Signs Temp 36.6 C 10/28/18 21:36 Pulse 77 10/28/18 21:36 Resp 12 10/28/18 21:36 BP 184/104 H 10/28/18 21:36 Pulse Ox 100 10/28/18 21:36 - Orders/Labs/Meds Orders: Active Orders 24 hr Category Date Time Status Peripheral IV Care [RC] . DIRECTED Care 10/28/18 21:45 Active CULTURE URINE [RM] Routine Lab 10/28/18 22:27 URINALYSIS W/MICROSCOPIC [UA W/MICROSCOPIC] [URIN] Lab 10/28/18 22:27 Ordered Routine Lactated Ringers [Ringers, Lactated] 1,000 ml Med 10/28/18 21:45 Active IV .BOLUS Sodium Chloride 0.9% [Saline Flush] Med 10/28/18 21:45 Active 10 ml FLUSH ASDIRECTED PRN Obtain Past Medical Record [OM.PC] Routine Oth 10/28/18 21:45 Active Peripheral IV Insertion Adult [OM.PC] Stat Oth 10/28/18 21:45 Ordered Medication Orders Lactated Ringer's (Ringers, Lactated) 1,000 mls @ 999 mls/hr IV .BOLUS ONE Stop: 10/28/18 22:45 Last Admin: 10/28/18 22:06 Dose: 999 mls/hr Sodium Chloride (Saline Flush) 10 ml FLUSH ASDIRECTED PRN PRN Reason: Keep Vein Open Last Admin: 10/28/18 22:02 Dose: 10 ml Labs: Laboratory Tests 10/28/18 10/28/18 10/28/18 Range/Units 21:45 21:45 21:50 WBC 14.1 H (4.0-10.2) K/uL RBC 5.04 (3.77-5.09) M/uL Hgb 15.9 H (11.7-15.5) g/dL Hct 47.4 H (34.0-46.0) % MCV 94.0 (84.0-98.0) fL MCH 31.5 (28.2-33.3) pg MCHC 33.5 (31.7-36.0) g/dL RDW 14.6 H (11.2-14.1) % Plt Count 135 L (150-350) K/uL Neut % (Auto) 84.5 H (45.0-80.0) % Lymph % (Auto) 6.7 L (10.0-50.0) % [place] % (Auto) 8.3 (2.0-14.0) % Eos % (Auto) 0.4 (0.0-5.0) % Baso % (Auto) 0.1 (0.0-2.0) % Neut # (Auto) 11.92 H (1.40-7.00) K/uL Lymph # (Auto) 0.95 (0.50-3.50) K/uL [place] # (Auto) 1.17 H (0.00-1.00) K/uL Eos # (Auto) 0.05 (0.00-0.50) K/uL Baso # (Auto) 0.01 (0.00-0.20) K/uL Sodium 141 (136-145) mmol/L Potassium 4.1 (3.5-5.1) mmol/L Chloride 102 (98-107) mmol/L Carbon Dioxide 30.1 (21.0-32.0) mmol/L BUN 22 H (7-18) mg/dL Creatinine 0.83 (0.51-1.17) mg/dL Est Cr Clr Drug Dosing 84.11 mL/min Estimated GFR (MDRD) > 60 mL/min Glucose 121 H (74-106) mg/dL Lactic Acid 1.0 (0.4-2.0) mmol/L Calcium 8.4 L (8.5-10.1) mg/dL Total Bilirubin 0.6 (0.2-1.0) mg/dL AST 28 (15-37) U/L ALT 31 (12-78) U/L Alkaline Phosphatase 80 (46-116) IU/L Total Protein 6.5 (6.4-8.2) g/dL Albumin 3.5 (3.4-5.0) g/dL UA specimen for culture and sensitivity and urinalysis obtained shortly after admission. Meds: Medications Generic Name Dose Route Start Last Admin Trade Name Freq PRN Reason Stop Dose Admin Lactated Ringer's 1,000 mls @ 999 mls/hr 10/28/18 21:45 10/28/18 22:06 Ringers, Lactated IV 10/28/18 22:45 999 mls/hr .BOLUS ONE Administration Sodium Chloride 10 ml 10/28/18 21:45 10/28/18 22:02 Saline Flush FLUSH 10 ml ASDIRECTED PRN Administration Keep Vein Open Discontinued Medications Generic Name Dose Route Start Last Admin Trade Name Freq PRN Reason Stop Dose Admin Famotidine 40 mg 10/28/18 21:46 10/28/18 22:03 Pepcid IVPUSH 10/28/18 21:47 40 mg ONETIME ONE Administration Hydromorphone HCl 1 mg 10/28/18 21:46 10/28/18 22:03 Dilaudid IVPUSH 10/28/18 21:47 1 mg ONETIME ONE Administration Ketorolac Tromethamine 30 mg 10/28/18 21:45 10/28/18 22:01 Toradol IVPUSH 10/28/18 21:46 30 mg ONETIME ONE Administration Ondansetron HCl 4 mg 10/28/18 21:46 10/28/18 22:02 Zofran IVPUSH 10/28/18 21:47 4 mg ONETIME ONE Administration - Radiology Interpretation Free Text/Narrative:: None CT scan of the abdomen and pelvis without contrast on 10/26/18 showed evidence of a 6 mm proximal right ureteral stone with some mild borderline hydronephrosis. Otherwise additional incidental findings include multiple nonobstructive bilateral urolithiasis/nephrolithiasis, newly diagnosed 2 mm left lower lobe pulmonary nodule, bilateral benign renal cysts, and right sided hepatic hypodensities 2 of unknown character injuring 3 cm and 4 cm in diameter with follow-up CT versus MRI recommended. Incidental small hiatal hernia also noted. NOTE: Preliminary verbal report not received from radiologist despite my previous request. Departure - Departure Time of Disposition: 20:20 Disposition: Refer to Observation Condition: Good Clinical Impression: Cholelithiasis, Hepatic cyst, Hiatal hernia, Pulmonary nodule, Renal cyst, Urolithiasis, Heart murmur, Dyslipidemia, Mixed anxiety depressive disorder, Subclinical hyperthyroidism, Tobacco abuse counseling, Osteoarthritis, Hypertension - Discharge Information *PRESCRIPTION DRUG MONITORING PROGRAM REVIEWED*: Not Applicable *COPY OF PRESCRIPTION DRUG MONITORING REPORT IN PATIENT FELICIANO: Not Applicable Forms: ED Department Discharge Care Plan Goals: See plan - Problem List & Annotations (1) Urolithiasis SNOMED Code(s): 39659645, 270955526 Code(s): N20.9 - URINARY CALCULUS, UNSPECIFIED Status: Acute Priority: High Onset Date: 10/26/18 Annotation/Comment:: CT scan results from 10/26/18 as above. Her right-sided stone at that time was only 6 mm in diameter and should pass spontaneously despite her previous history of required lithotripsy 2. Note persistent leukocytosis with previous urine culture showing a contaminated specimen. UA with culture and sensitivity to be repeated. Initiate IV Rocephin therapy. Secondary to refractory symptoms patient will be placed in observation status for aggressive pain control and IV hydration. Renal ultrasound to be conducted in the a.m. to rule out significant progressive hydronephrosis with further urology consultation and possible referral for lithotripsy depending on her clinical course. Aggressive treatment in the emergency room as above. Qualifiers: Urinary calculus location: ureter Qualified Code(s): N20.1 - Calculus of ureter (2) Cholelithiasis SNOMED Code(s): 102418406 Code(s): K80.20 - CALCULUS OF GALLBLADDER W/O CHOLECYSTITIS W/O OBSTRUCTION Status: Acute Priority: Medium Onset Date: 10/26/18 Annotation/Comment: : Incidental finding by CT scan on 10/26/18. Nonsymptomatic observe for now. Qualifiers: Cholelithiasis location: gallbladder Cholecystitis presence: without cholecystitis Biliary obstruction: without biliary obstruction Qualified Code(s): K80.20 - Calculus of gallbladder without cholecystitis without obstruction (3) Hepatic cyst SNOMED Code(s): 34776342 Code(s): K76.89 - OTHER SPECIFIED DISEASES OF LIVER Status: Acute Priority: High Onset Date: 10/26/18 Annotation/Comment:: Hepatic echodensities [address] scan as above. Follow-up recommended to determine whether they're benign nodules versus cysts, etc. with further evaluation on an outpatient basis as per discharge instructions on 10/26/18. (4) Hiatal hernia SNOMED Code(s): 47484898 Code(s): K44.9 - DIAPHRAGMATIC HERNIA WITHOUT OBSTRUCTION OR GANGRENE Status: Acute Priority: Medium Onset Date: 10/26/18 Annotation/Comment:: She does have history of GERD small hiatal hernia diagnosed by CT scan on . High-dose IV Pepcid given in the emergency room as GI prophylaxis secondary to required IV Toradol therapy. Otherwise nonsymptomatic at this time. (5) Pulmonary nodule SNOMED Code(s): 271863480 Code(s): R91.1 - SOLITARY PULMONARY NODULE Status: Acute Priority: High Onset Date: 10/26/18 Annotation/Comment:: Incidental finding by CT scan on as above. Close follow-up as per discharge instructions on 10/26/18. Avoidance of tobacco exposure, etc. extensively discussed once again today. (6) Renal cyst SNOMED Code(s): 981310913 Code(s): N28.1 - CYST OF KIDNEY, ACQUIRED Status: Acute Priority: Medium Onset Date: 10/26/18 Annotation/Comment:: Incidental finding by CT scan on 10/26/18. Observe for now with repeat MRI versus CT scan as above for evaluation of other lesions as above. Note that the patient has already contacted her regular provider at [facility] for follow-up visit with above evaluations to be scheduled at that time. (7) Bradycardia SNOMED Code(s): 42667106 Code(s): R00.1 - BRADYCARDIA, UNSPECIFIED Status: Chronic Priority: Medium Annotation/Comment:: History of previous intermittent bradycardia, including on 10/26/18, with known previous history of PVCs, PACs, right bundle branch block, etc. No chest pain or anginal type symptoms (8) Dyslipidemia SNOMED Code(s): 775565798 Code(s): E78.5 - HYPERLIPIDEMIA, UNSPECIFIED Status: Chronic Priority: Medium Annotation/Comment:: Currently not under medical therapy. Weight loss in moderation advisable. Continue to closely follow through her regular provider. (9) Heart murmur SNOMED Code(s): 73322166 Code(s): R01.1 - CARDIAC MURMUR, UNSPECIFIED Status: Chronic Priority: High Annotation/Comment:: Note progressive aortic valve stenosis by my clinical exam. Last echocardiogram results from 11/19/16 were reviewed by me with only mild diffuse valvular disease at that time. Patient is currently nonsymptomatic. Close follow-up by regular provider and/or automotive service advisor as per discharge instructions on 10/26/18, including possible repeat echocardiogram. (10) Hypertension SNOMED Code(s): 65863524 Code(s): I10 - ESSENTIAL (PRIMARY) HYPERTENSION Status: Chronic Priority : Medium Annotation/Comment:: Blood pressure somewhat elevated today secondary to her discomfort. Otherwise overall stable in the emergency room. Continue to observe closely during this hospitalization and by regular provider consideration of medical therapy depending on her clinical course. Note cardiac murmur as above. Qualifiers: Hypertension type: essential hypertension Qualified Code(s): I10 - Essential (primary) hypertension (11) Mixed anxiety depressive disorder SNOMED Code(s): 994174332 Code(s): F41.8 - OTHER SPECIFIED ANXIETY DISORDERS Status: Chronic Priority: Medium Annotation/Comment:: Stable by history. (12) Osteoarthritis SNOMED Code(s): 737139995 Code(s): M19.90 - UNSPECIFIED OSTEOARTHRITIS, UNSPECIFIED SITE Status: Chronic Priority: Medium Annotation/Comment:: Stable by history, including after recent back surgery as above. Qualifiers: Osteoarthritis location: multiple joints Osteoarthritis type: primary Qualified Code(s): M15.0 - Primary generalized (osteo)arthritis (13) Subclinical hyperthyroidism SNOMED Code(s): 774959903 Code(s): E05.90 - THYROTOXICOSIS, UNSP WITHOUT THYROTOXIC CRISIS OR STORM Status: Chronic Priority: Medium Annotation/Comment:: Stable by history with no clinical symptoms at this time. Thyroid ultrasound has been rescheduled at [facility] for 12/07/18. (14) Tobacco abuse counseling SNOMED Code(s): 145612552, 964600286, 143303026 Code(s): Z71.6 - TOBACCO ABUSE COUNSELING Status: Chronic Priority: Medium Annotation/Comment:: Tobacco cessation for her once again strongly encouraged with information provided on 10/26/18. - Problem List Review Problem List Initiated/Reviewed/Updated: Yes - My Orders Last 24 Hours: My Active Orders 10/28/18 21:45 Peripheral IV Care [RC] . DIRECTED Lactated Ringers [Ringers, Lactated] 1,000 ml IV .BOLUS Sodium Chloride 0.9% [Saline Flush] 10 ml FLUSH ASDIRECTED PRN Obtain Past Medical Record [OM.PC] Routine Peripheral IV Insertion Adult [OM.PC] Stat 10/28/18 22:27 CULTURE URINE [RM] Routine URINALYSIS W/MICROSCOPIC [UA W/MICROSCOPIC] [URIN] Routine - Assessment/Plan Admission H&P: Please use this note as an admission H&P Last 24 Hours: My Active Orders 10/28/18 21:45 Peripheral IV Care [RC] . DIRECTED Lactated Ringers [Ringers, Lactated] 1,000 ml IV .BOLUS Sodium Chloride 0.9% [Saline Flush] 10 ml FLUSH ASDIRECTED PRN Obtain Past Medical Record [OM.PC] Routine Peripheral IV Insertion Adult [OM.PC] Stat 10/28/18 22:27 CULTURE URINE [RM] Routine URINALYSIS W/MICROSCOPIC [UA W/MICROSCOPIC] [URIN] Routine Assessment:: As above Plan: As above. Extensive precautions were given to the patient and her , who are in agreement with the treatment plan. Christiano Lange M.D. at the [facility] assumes care in the a.m. The patient's condition is stable enough for observation status and general supervision. She already has a follow- up appointment scheduled with her regular provider at [facility] in [place] as above. Note that she was strongly encouraged to bring the discharge instructions both from this hospitalization and from the emergency room visit on 10/26/18 to that visit.
[2018-10-28] MEDS ORDERED: Ketorolac 30 MG/ML SDV IVPUSH ONE (21:45)
[2018-10-28] MEDS ORDERED: Lactated Ringers 1,000 ML IV ONE (21:45)
[2018-10-28] MEDS ORDERED: Famotidine 20 MG/2 ML SDV IVPUSH ONE (21:46)
[2018-10-28] MEDS ORDERED: Ondansetron 4 MG/2 ML SDV IVPUSH ONE (21:46)
[2018-10-28] MEDS ORDERED: HYDROmorphone 1 MG/ML Syringe IVPUSH ONE (21:46)
[2018-10-28] MEDS: Sodium Chloride 0.9% 10 ML Syringe FLUSH PRN ×2 (22:02→23:35)
[2018-10-28 22:14] LABS: CHLORIDE,CL 102 mmol/L (98-107); SODIUM,NA 141 mmol/L (136-145)
[2018-10-28] MEDS ORDERED: Temazepam 15 MG Cap PO PRN (22:44)
[2018-10-28] MEDS ORDERED: Acetaminophen 325 MG Tab PO PRN (22:44)
[2018-10-28] MEDS ORDERED: Ondansetron 4 MG/2 ML SDV IVPUSH PRN (22:44)
[2018-10-28] MEDS ORDERED: HYDROmorphone 1 MG/ML Syringe IVPUSH PRN (22:50)
[2018-10-28] MEDS: cefTRIAXone 1 GM in Sodium Chloride 0.9% 100 ML IV SCH (23:35)
[2018-10-29] MEDS: Lactated Ringers 1,000 ML IV SCH ×3 (00:15→14:19)
[2018-10-29] MEDS ORDERED: Ketorolac 15 MG/ML SDV IVPUSH PRN (03:00)
[2018-10-29] MEDS: traMADol 50 MG Tab PO PRN ×2 (06:22→17:20)
[2018-10-29 07:56] LABS: CHLORIDE,CL 103 mmol/L (98-107); SODIUM,NA 140 mmol/L (136-145)
[2018-10-29] MEDS ORDERED: Tamsulosin 0.4 MG Cap.ER PO SCH (08:00)
[2018-10-29] MEDS ORDERED: Hydrochlorothiazide 25 MG Tab PO SCH (08:00)
[2018-10-29] MEDS ORDERED: Losartan 50 MG Tab PO SCH (08:00)
[2018-10-29] MEDS ORDERED: Metoprolol Tartrate 25 MG Tab PO SCH (08:00)
[2018-10-29] MEDS ORDERED: Sodium Chloride 0.9% 10 ML Syringe FLUSH SCH (08:00)
[2018-10-29] MEDS: cefTRIAXone 1 GM in Sodium Chloride 0.9% 100 ML IV SCH (11:09)
--- NOTE | 2018-10-29 14:27 | PCM.PN ---
- General Info Date of Service: 10/29/18 Admission Dx/Problem (Free Text): Right sided ureteral stone/renal colic Subjective Update: Patient reports that current pain management is keeping her comfortable. Eating, drinking, ambulating. Functional Status: Reports: Pain Controlled, Tolerating Diet, Ambulating, Urinating. Denies: New Symptoms - Review of Systems General: Reports: No Symptoms HEENT: Reports: No Symptoms Pulmonary: Reports: No Symptoms Cardiovascular: Reports: No Symptoms Gastrointestinal: Reports: Abdominal Pain, Other (Nausea/emesis currently controlled). Denies: Constipation, Diarrhea Genitourinary: Reports: Frequency, Hematuria (noted on UA), Flank Pain. Denies : Retention Musculoskeletal: Reports: No Symptoms Skin: Reports: No Symptoms Neurological: Reports: No Symptoms Psychiatric: Reports: No Symptoms - Patient Data Vitals - Most Recent: Last Vital Signs Temp 36.8 C 10/29/18 06:00 Pulse 71 10/29/18 08:51 Resp 12 10/29/18 06:00 BP 137/84 10/29/18 08:51 Pulse Ox 96 10/29/18 06:00 Weight - Most Recent: 79.067 kg I&O - Last 24 Hours: Intake & Output 10/28/18 10/29/18 10/29/18 22:59 06:59 14:59 Intake Total 3514 1380 Output Total 300 1200 Balance -300 2314 1380 Lab Results Last 24 Hours: Laboratory Results - last 24 hr 10/28/18 10/28/18 10/28/18 Range/Units 21:45 21:45 21:50 WBC 14.1 H (4.0-10.2) K/uL RBC 5.04 (3.77-5.09) M/uL Hgb 15.9 H (11.7-15.5) g/dL Hct 47.4 H (34.0-46.0) % MCV 94.0 (84.0-98.0) fL MCH 31.5 (28.2-33.3) pg MCHC 33.5 (31.7-36.0) g/dL RDW 14.6 H (11.2-14.1) % Plt Count 135 L (150-350) K/uL Neut % (Auto) 84.5 H (45.0-80.0) % Lymph % (Auto) 6.7 L (10.0-50.0) % [place] % (Auto) 8.3 (2.0-14.0) % Eos % (Auto) 0.4 (0.0-5.0) % Baso % (Auto) 0.1 (0.0-2.0) % Neut # (Auto) 11.92 H (1.40-7.00) K/uL Lymph # (Auto) 0.95 (0.50-3.50) K/uL [place] # (Auto) 1.17 H (0.00-1.00) K/uL Eos # (Auto) 0.05 (0.00-0.50) K/uL Baso # (Auto) 0.01 (0.00-0.20) K/uL Sodium 141 (136-145) mmol/L Potassium 4.1 (3.5-5.1) mmol/L Chloride 102 (98-107) mmol/L Carbon Dioxide 30.1 (21.0-32.0) mmol/L BUN 22 H (7-18) mg/dL Creatinine 0.83 (0.51-1.17) mg/dL Est Cr Clr Drug Dosing 84.11 mL/min Estimated GFR (MDRD) > 60 mL/min Glucose 121 H (74-106) mg/dL Lactic Acid 1.0 (0.4-2.0) mmol/L Calcium 8.4 L (8.5-10.1) mg/dL Total Bilirubin 0.6 (0.2-1.0) mg/dL AST 28 (15-37) U/L ALT 31 (12-78) U/L Alkaline Phosphatase 80 (46-116) IU/L Total Protein 6.5 (6.4-8.2) g/dL Albumin 3.5 (3.4-5.0) g/dL Specimen Type Urine Color Urine Appearance Urine pH (5.0-9.0) Ur Specific [place]ydia (1.005-1.030) Urine Protein (NEGATIVE) mg/dL Urine Glucose (UA) (NEGATIVE) mg/dL Urine Ketones (NEGATIVE) mg/dL Urine Occult Blood (NEGATIVE) Urine Nitrite (NEGATIVE) Urine Bilirubin (NEGATIVE) Urine Urobilinogen (0.2-1.0) E.U./dL Ur Leukocyte Esterase (NEGATIVE) Urine RBC /HPF Urine WBC /HPF Ur Epithelial Cells /LPF Urine Bacteria (NONE TO FEW) /HPF 10/28/18 10/29/18 10/29/18 Range/Units 23:30 07:10 07:10 WBC 11.2 H (4.0-10.2) K/uL RBC 4.50 (3.77-5.09) M/uL Hgb 14.0 D (11.7-15.5) g/dL Hct 43.0 (34.0-46.0) % MCV 95.6 (84.0-98.0) fL MCH 31.1 (28.2-33.3) pg MCHC 32.6 (31.7-36.0) g/dL RDW 14.5 H (11.2-14.1) % Plt Count 151 (150-350) K/uL Neut % (Auto) 82.5 H (45.0-80.0) % Lymph % (Auto) 8.4 L (10.0-50.0) % [place] % (Auto) 8.3 (2.0-14.0) % Eos % (Auto) 0.6 (0.0-5.0) % Baso % (Auto) 0.2 (0.0-2.0) % Neut # (Auto) 9.21 H (1.40-7.00) K/uL Lymph # (Auto) 0.94 (0.50-3.50) K/uL [place] # (Auto) 0.93 (0.00-1.00) K/uL Eos # (Auto) 0.07 (0.00-0.50) K/uL Baso # (Auto) 0.02 (0.00-0.20) K/uL Sodium 140 (136-145) mmol/L Potassium 4.1 (3.5-5.1) mmol/L Chloride 103 (98-107) mmol/L Carbon Dioxide 29.8 (21.0-32.0) mmol/L BUN 21 H (7-18) mg/dL Creatinine 0.92 (0.51-1.17) mg/dL Est Cr Clr Drug Dosing 75.88 mL/min Estimated GFR (MDRD) > 60 mL/min Glucose 142 H (74-106) mg/dL Lactic Acid (0.4-2.0) mmol/L Calcium 8.1 L (8.5-10.1) mg/dL Total Bilirubin (0.2-1.0) mg/dL AST (15-37) U/L ALT (12-78) U/L Alkaline Phosphatase (46-116) IU/L Total Protein (6.4-8.2) g/dL Albumin (3.4-5.0) g/dL Specimen Type Urincc Urine Color Light yellow Urine Appearance Cloudy Urine pH 7.0 (5.0-9.0) Ur Specific [place] 1.015 (1.005-1.030) Urine Protein Negative (NEGATIVE) mg/dL Urine Glucose (UA) Negative (NEGATIVE) mg/dL Urine Ketones Negative (NEGATIVE) mg/dL Urine Occult Blood Large H (NEGATIVE) Urine Nitrite Negative (NEGATIVE) Urine Bilirubin Negative (NEGATIVE) Urine Urobilinogen 0.2 (0.2-1.0) E.U./dL Ur Leukocyte Esterase Trace H (NEGATIVE) Urine RBC 75-100 H /HPF Urine WBC 5-10 H /HPF Ur Epithelial Cells Many H /LPF Urine Bacteria Few (NONE TO FEW) /HPF Med Orders - Current: Current Medications Acetaminophen (Tylenol) 650 mg PO Q4H PRN PRN Reason: Pain (Mild 1-3)/fever Famotidine (Pepcid) 20 mg IVPUSH Q12H [facility] Hydrochlorothiazide (Hydrochlorothiazide) 25 mg PO DAILY [facility] Last Admin: 10/29/18 08:50 Dose: 25 mg Hydromorphone HCl (Dilaudid) 1 mg IVPUSH Q4H PRN PRN Reason: Pain (severe 7-10) Ceftriaxone Sodium 1 gm/ (Sodium Chloride) 100 mls @ 200 mls/hr IV Q12H [facility] Last Admin: 10/29/18 11:09 Dose: 200 mls/hr Lactated Ringer's (Ringers, Lactated) 1,000 mls @ 150 mls/hr IV ASDIRECTED [facility] Last Admin: 10/29/18 06:59 Dose: 150 mls/hr Ketorolac Tromethamine (Toradol) 15 mg IVPUSH Q6H PRN PRN Reason: Breakthrough Pain Losartan Potassium (Cozaar) 25 mg PO DAILY [facility] Last Admin: 10/29/18 08:51 Dose: 25 mg Metoprolol Tartrate (Lopressor) 12.5 mg PO Q12HR [facility] Last Admin: 10/29/18 08:51 Dose: 12.5 mg Ondansetron HCl (Zofran) 4 mg IVPUSH Q6H PRN PRN Reason: Nausea/Vomiting Sodium Chloride (Saline Flush) 10 ml FLUSH ASDIRECTED PRN PRN Reason: Keep Vein Open Last Admin: 10/28/18 23:35 Dose: 10 ml Sodium Chloride (Saline Flush) 10 ml FLUSH Q12HR [facility] Last Admin: 10/29/18 08:53 Dose: Not Given Tamsulosin HCl (Flomax) 0.4 mg PO DAILY [facility] Last Admin: 10/29/18 08:50 Dose: 0.4 mg Temazepam (Restoril) 15 mg PO BEDTIME PRN PRN Reason: Insomnia Tramadol HCl (Ultram) 50 mg PO Q4H PRN PRN Reason: Pain (moderate 4-6) Last Admin: 10/29/18 06:22 Dose: 50 mg Discontinued Medications Famotidine (Pepcid) 40 mg IVPUSH ONETIME ONE Stop: 10/28/18 21:47 Last Admin: 10/28/18 22:03 Dose: 40 mg Famotidine (Pepcid) 20 mg IVPUSH Q12H [facility] Hydromorphone HCl (Dilaudid) 1 mg IVPUSH ONETIME ONE Stop: 10/28/18 21:47 Last Admin: 10/28/18 22:03 Dose: 1 mg Lactated Ringer's (Ringers, Lactated) 1,000 mls @ 999 mls/hr IV .BOLUS ONE Stop: 10/28/18 22:45 Last Admin: 10/28/18 22:06 Dose: 999 mls/hr Ketorolac Tromethamine (Toradol) 30 mg IVPUSH ONETIME ONE Stop: 10/28/18 21:46 Last Admin: 10/28/18 22:01 Dose: 30 mg Ondansetron HCl (Zofran) 4 mg IVPUSH ONETIME ONE Stop: 10/28/18 21:47 Last Admin: 10/28/18 22:02 Dose: 4 mg - Exam Quality Assessment: DVT Prophylaxis (compression stockings) General: Alert, Oriented, Cooperative, No Acute Distress HEENT: Pupils Equal, Pupils Reactive, EOMI, Mucous Membr. Moist/[place] Neck: Supple Lungs: Clear to Auscultation, Normal Respiratory Effort Cardiovascular: Regular Rate, Regular Rhythm GI/Abdominal Exam: Normal Bowel Sounds, Soft, Non-Tender, No Distention (Female) Exam: Deferred Back Exam: No: CVA Tenderness (L), CVA Tenderness (R), Muscle Spasm, Paraspinal Tenderness, Vertebral Tenderness Extremities: Normal Inspection, Normal Range of Motion, Non-Tender, Normal Capillary Refill Skin: Warm, Dry, Intact Neurological: No New Focal Deficit Psy/Mental Status: Alert, Normal Affect, Normal Mood - Problem List & Annotations (1) Urolithiasis SNOMED Code(s): 96014120, 754629973 Code(s): N20.9 - URINARY CALCULUS, UNSPECIFIED Status: Acute Priority: High Current Visit: No Onset Date: 10/26/18 Qualifiers: Urinary calculus location: ureter Qualified Code(s): N20.1 - Calculus of ureter Annotation/Comment:: Patient has not as of yet passed the stone. She is uncertain if pain has moved significantly downward in abdomen when she feels discomfort. CT scan results from 10/26/18 as above. Her right-sided stone at that time was only 6 mm in diameter and should pass spontaneously despite her previous history of required lithotripsy 2. Note persistent leukocytosis with previous urine culture showing a contaminated specimen. UA with culture and sensitivity to be repeated. Initiated Rocephin therapy. Secondary to refractory symptoms patient placed in observation status for aggressive pain control and IV hydration. Renal ultrasound conducted this morning. Multiple renal cysts/ stones noted. Hydronephrosis on right. Urology consultation requested. Call placed to [place] and currently awaiting Urology to return phone as physician is currently in surgery. Possible referral for lithotripsy depending on her clinical clinical course (2) Cholelithiasis SNOMED Code(s): 712612042 Code(s): K80.20 - CALCULUS OF GALLBLADDER W/O CHOLECYSTITIS W/O OBSTRUCTION Status: Acute Priority: Medium Current Visit: No Onset Date: 10/26/18 Qualifiers: Cholelithiasis location: gallbladder Cholecystitis presence: without cholecystitis Biliary obstruction: without biliary obstruction Qualified Code(s): K80.20 - Calculus of gallbladder without cholecystitis without obstruction Annotation/Comment:: Incidental finding by CT scan on 10/26/18. Nonsymptomatic observe for now (3) Hepatic cyst SNOMED Code(s): 74999770 Code(s): K76.89 - OTHER SPECIFIED DISEASES OF LIVER Status: Acute Priority: High Current Visit: No Onset Date: 10/26/18 Annotation/Comment: : Hepatic echodensities [address] scan as above. Follow-up recommended to determine whether they're benign nodules versus cysts, etc. with further evaluation on an outpatient basis as per discharge instructions on 10/26/18. (4) Hiatal hernia SNOMED Code(s): 93329494 Code(s): K44.9 - DIAPHRAGMATIC HERNIA WITHOUT OBSTRUCTION OR GANGRENE Status: Acute Priority: Medium Current Visit: No Onset Date: 10/26/18 Annotation/Comment:: She does have history of GERD small hiatal hernia diagnosed by CT scan on 10/26/18. High-dose IV Pepcid given in the emergency room as GI prophylaxis secondary to required IV Toradol therapy. Otherwise nonsymptomatic at this time. (5) Pulmonary nodule SNOMED Code(s): 952576854 Code(s): R91.1 - SOLITARY PULMONARY NODULE Status: Acute Priority: High Current Visit: No Onset Date: 10/26/18 Annotation/Comment:: Incidental finding by CT scan on 10/26/18 as above. Close follow-up as per discharge instructions on 10/26/18. Avoidance of tobacco exposure, etc. extensively discussed. (6) Renal cyst SNOMED Code(s): 515722141 Code(s): N28.1 - CYST OF KIDNEY, ACQUIRED Status: Acute Priority: Medium Current Visit: No Onset Date: 10/26/18 Annotation/Comment:: Incidental finding by CT scan on 10/26/18. Observe for now with repeat MRI versus CT scan as above for evaluation of other lesions as above. Note that the patient has already contacted her regular provider at [facility] for follow- up visit with above evaluations to be scheduled at that time. (7) Bradycardia SNOMED Code(s): 48097116 Code(s): R00.1 - BRADYCARDIA, UNSPECIFIED Status: Chronic Priority: Medium Current Visit: No Annotation/Comment:: History of previous intermittent bradycardia, including on 10/26/18, with known previous history of PVCs, PACs, right bundle branch block, etc. No chest pain or anginal type symptoms (8) Dyslipidemia SNOMED Code(s): 813637242 Code(s): E78.5 - HYPERLIPIDEMIA, UNSPECIFIED Status: Chronic Priority: Medium Current Visit: No Annotation/Comment:: Currently not under medical therapy. Weight loss in moderation advisable. Continue to closely follow through her regular provider. (9) Heart murmur SNOMED Code(s): 36510586 Code(s): R01.1 - CARDIAC MURMUR, UNSPECIFIED Status: Chronic Priority: High Current Visit: No Annotation/Comment:: Note progressive aortic valve stenosis by my clinical exam. Last echocardiogram results from 11/19/16 were reviewed by me with only mild diffuse valvular disease at that time. Patient is currently nonsymptomatic. Close follow-up by regular provider and/or multiple spindle router operator as per discharge instructions on 10/26/18, including possible repeat echocardiogram. (10) Hypertension SNOMED Code(s): 28463121 Code(s): I10 - ESSENTIAL (PRIMARY) HYPERTENSION Status: Chronic Priority : Medium Current Visit: No Qualifiers: Hypertension type: essential hypertension Qualified Code(s): I10 - Essential (primary) hypertension Annotation/Comment:: Blood pressure somewhat elevated today secondary to her discomfort. Otherwise overall stable in the emergency room. Continue to observe closely during this hospitalization and by regular provider consideration of medical therapy depending on her clinical course. Note cardiac murmur as above. (11) Mixed anxiety depressive disorder SNOMED Code(s): 991598419 Code(s): F41.8 - OTHER SPECIFIED ANXIETY DISORDERS Status: Chronic Priority: Medium Current Visit: No Annotation/Comment:: Stable by history. (12) Osteoarthritis SNOMED Code(s): 024985040 Code(s): M19.90 - UNSPECIFIED OSTEOARTHRITIS, UNSPECIFIED SITE Status: Chronic Priority: Medium Current Visit: No Qualifiers: Osteoarthritis location: multiple joints Osteoarthritis type: primary Qualified Code(s): M15.0 - Primary generalized (osteo)arthritis Annotation/Comment:: Stable by history, including after recent back surgery as above. (13) Subclinical hyperthyroidism SNOMED Code(s): 090592116 Code(s): E05.90 - THYROTOXICOSIS, UNSP WITHOUT THYROTOXIC CRISIS OR STORM Status: Chronic Priority: Medium Current Visit: No Annotation/Comment:: Stable by history with no clinical symptoms at this time. Thyroid ultrasound has been rescheduled at [facility] for 12/07/18. (14) Tobacco abuse counseling SNOMED Code(s): 750153243, 672074339, 007796417 Code(s): Z71.6 - TOBACCO ABUSE COUNSELING Status: Chronic Priority: Medium Current Visit: No Annotation/Comment:: Tobacco cessation for her once again strongly encouraged with information provided on 10/26/18. - Problem List Review Problem List Initiated/Reviewed/Updated: Yes - Assessment Assessment:: as above - Plan Plan:: as above.
--- NOTE | 2018-10-29 16:33 | PCM.DCSUM1 ---
Discharge Summary - Hospital Course Brief History: Patient admitted for pain control due to renal colic. 6mm stone proximal right ureter. Symptomatic for 4 days. Diagnosis: Stroke: No - Discharge Data Discharge Date: 10/29/18 Discharge Disposition: DC/Tfer to Acute Hospital 02 Condition: Good - Discharge Diagnosis/Problem(s) (1) Urolithiasis SNOMED Code(s): 36851164, 681531982 ICD Code: N20.9 - URINARY CALCULUS, UNSPECIFIED Status: Acute Priority: High Current Visit: No Onset Date: 10/26/18 Problem Details: Discussed patient with from [facility]. He felt that patient had 40% of passing stone on own given size. As she has been symptomatic for 4 days, and also has multiple other stones in bilateral kidneys, he felt that it would be appropriate to send the patient to [facility] to be evaluated. She will likely have stent placement performed in the morning if stone has not yet passed. Qualifiers: Urinary calculus location: ureter Qualified Code(s): N20.1 - Calculus of ureter (2) Cholelithiasis SNOMED Code(s): 611082619 ICD Code: K80.20 - CALCULUS OF GALLBLADDER W/O CHOLECYSTITIS W/O OBSTRUCTION Status: Acute Priority: Medium Current Visit: No Onset Date: 10/26/18 Problem Details: Incidental finding by CT scan on 10/26/18. Nonsymptomatic observe for now Qualifiers: Cholelithiasis location: gallbladder Cholecystitis presence: without cholecystitis Biliary obstruction: without biliary obstruction Qualified Code(s): K80.20 - Calculus of gallbladder without cholecystitis without obstruction (3) Hepatic cyst SNOMED Code(s): 98939928 ICD Code: K76.89 - OTHER SPECIFIED DISEASES OF LIVER Status: Acute Priority: High Current Visit: No Onset Date: 10/26/18 Problem Details: Hepatic echodensities [address] scan as above. Follow-up recommended to determine whether they're benign nodules versus cysts, etc. with further evaluation on an outpatient basis as per discharge instructions on 10/26/18. (4) Hiatal hernia SNOMED Code(s): 79700644 ICD Code: K44.9 - DIAPHRAGMATIC HERNIA WITHOUT OBSTRUCTION OR GANGRENE Status: Acute Priority: Medium Current Visit: No Onset Date: 10/26/18 Problem Details: She does have history of GERD small hiatal hernia diagnosed by CT scan on 10/26/18. High-dose IV Pepcid given in the emergency room as GI prophylaxis secondary to required IV Toradol therapy. Otherwise nonsymptomatic at this time. (5) Pulmonary nodule SNOMED Code(s): 634779947 ICD Code: R91.1 - SOLITARY PULMONARY NODULE Status: Acute Priority: High Current Visit: No Onset Date: 10/26/18 Problem Details: Incidental finding by CT scan on 10/26/18 as above. Close follow-up as per discharge instructions on 10/26/18. Avoidance of tobacco exposure, etc. extensively discussed. (6) Renal cyst SNOMED Code(s): 410419731 ICD Code: N28.1 - CYST OF KIDNEY, ACQUIRED Status: Acute Priority: Medium Current Visit: No Onset Date: 10/26/18 Problem Details: Incidental finding by CT scan on 10/26/18. Observe for now with repeat MRI versus CT scan as above for evaluation of other lesions as above. Note that the patient has already contacted her regular provider at [facility] for follow- up visit with above evaluations to be scheduled at that time. (7) Bradycardia SNOMED Code(s): 81253307 ICD Code: R00.1 - BRADYCARDIA, UNSPECIFIED Status: Chronic Priority: Medium Current Visit: No Problem Details: History of previous intermittent bradycardia, including on 10/26/18, with known previous history of PVCs, PACs, right bundle branch block, etc. No chest pain or anginal type symptoms (8) Dyslipidemia SNOMED Code(s): 537011704 ICD Code: E78.5 - HYPERLIPIDEMIA, UNSPECIFIED Status: Chronic Priority: Medium Current Visit: No Problem Details: Currently not under medical therapy. Weight loss in moderation advisable. Continue to closely follow through her regular provider. (9) Heart murmur SNOMED Code(s): 27002524 ICD Code: R01.1 - CARDIAC MURMUR, UNSPECIFIED Status: Chronic Priority: High Current Visit: No Problem Details: Note progressive aortic valve stenosis by my clinical exam. Last echocardiogram results from 11/19/16 were reviewed by me with only mild diffuse valvular disease at that time. Patient is currently nonsymptomatic. Close follow-up by regular provider and/or assistant distribution manager as per discharge instructions on 10/26/18, including possible repeat echocardiogram. (10) Hypertension SNOMED Code(s): 02143077 ICD Code: I10 - ESSENTIAL (PRIMARY) HYPERTENSION Status: Chronic Priority : Medium Current Visit: No Problem Details: Blood pressure somewhat elevated today secondary to her discomfort. Otherwise overall stable in the emergency room. Continue to observe closely during this hospitalization and by regular provider consideration of medical therapy depending on her clinical course. Note cardiac murmur as above. Qualifiers: Hypertension type: essential hypertension Qualified Code(s): I10 - Essential (primary) hypertension (11) Mixed anxiety depressive disorder SNOMED Code(s): 081392513 ICD Code: F41.8 - OTHER SPECIFIED ANXIETY DISORDERS Status: Chronic Priority: Medium Current Visit: No Problem Details: Stable by history. (12) Osteoarthritis SNOMED Code(s): 453668983 ICD Code: M19.90 - UNSPECIFIED OSTEOARTHRITIS, UNSPECIFIED SITE Status: Chronic Priority: Medium Current Visit: No Problem Details: Stable by history, including after recent back surgery as above. Qualifiers: Osteoarthritis location: multiple joints Osteoarthritis type: primary Qualified Code(s): M15.0 - Primary generalized (osteo)arthritis (13) Subclinical hyperthyroidism SNOMED Code(s): 013337355 ICD Code: E05.90 - THYROTOXICOSIS, UNSP WITHOUT THYROTOXIC CRISIS OR STORM Status: Chronic Priority: Medium Current Visit: No Problem Details: Stable by history with no clinical symptoms at this time. Thyroid ultrasound has been rescheduled at [facility] for 12/07/18. (14) Tobacco abuse counseling SNOMED Code(s): 090327516, 431917872, 652341139 ICD Code: Z71.6 - TOBACCO ABUSE COUNSELING Status: Chronic Priority: Medium Current Visit: No Problem Details: Tobacco cessation for her once again strongly encouraged with information provided on 10/26/18. - Patient Summary/Data Complications: none Labs Pending at D/C: Urine culture pending Hospital Course: Pain control improved after admission. Patient eating/drinking. Intermittent crampy pain continues. Decision made to transfer patient to [facility] for evaluation by Urology as she has not yet passed the stone, and given the stone' s size she has only a 40% chance of spontaneous passage. Anticipate patient will be stented tomorrow. Discussed patient with both from Urology and , Hospitalist. Patient wishes to go by private vehicle. Additional follow up testing for incidental CT findings will be determined by [facility]. - Patient Instructions Driving: Do Not Drive Other/Special Instructions: Drive directly to [facility] in [place]. They are expecting you. - Discharge Plan *PRESCRIPTION DRUG MONITORING PROGRAM REVIEWED*: Not Applicable *COPY OF PRESCRIPTION DRUG MONITORING REPORT IN PATIENT FELICIANO: Not Applicable Home Medications: Home Meds Losartan [Cozaar] 25 mg PO DAILY 10/26/18 [History] Metoprolol Tartrate [Lopressor] 12.5 mg PO Q12HR 10/26/18 [History] Tamsulosin [Tamsulosin 24 Hr] 0.4 mg PO DAILY #7 cap.er 10/26/18 [Rx] hydroCHLOROthiazide [Hydrochlorothiazide] 25 mg PO DAILY 10/26/18 [History] traMADol [Ultram] 50 mg PO Q4H PRN #10 tab 10/26/18 [Rx] Patient Handouts: Kidney Stones, Ketorolac injection, Ceftriaxone injection, Hydromorphone injection, Kidney Stones, [id number], Famotidine injection, Flank Pain, Adult, [id number] Forms: ED Department Discharge Referrals: PCP,None [Primary Care Provider] - - Discharge Summary/Plan Comment DC Time >30 min.: No - Patient Data Vitals - Most Recent: Last Vital Signs Temp 37.0 C 10/29/18 15:00 Pulse 71 10/29/18 15:00 Resp 20 10/29/18 15:00 BP 137/84 10/29/18 15:00 Pulse Ox 96 10/29/18 15:00 Weight - Most Recent: 79.067 kg I&O - Last 24 hours: Intake & Output 10/29/18 10/29/18 10/29/18 06:59 14:59 22:59 Intake Total 3514 2080 Output Total 1200 Balance 2314 2080 Lab Results - Last 24 hrs: Laboratory Results - last 24 hr 10/28/18 10/28/18 10/28/18 Range/Units 21:45 21:45 21:50 WBC 14.1 H (4.0-10.2) K/uL RBC 5.04 (3.77-5.09) M/uL Hgb 15.9 H (11.7-15.5) g/dL Hct 47.4 H (34.0-46.0) % MCV 94.0 (84.0-98.0) fL MCH 31.5 (28.2-33.3) pg MCHC 33.5 (31.7-36.0) g/dL RDW 14.6 H (11.2-14.1) % Plt Count 135 L (150-350) K/uL Neut % (Auto) 84.5 H (45.0-80.0) % Lymph % (Auto) 6.7 L (10.0-50.0) % [place] % (Auto) 8.3 (2.0-14.0) % Eos % (Auto) 0.4 (0.0-5.0) % Baso % (Auto) 0.1 (0.0-2.0) % Neut # (Auto) 11.92 H (1.40-7.00) K/uL Lymph # (Auto) 0.95 (0.50-3.50) K/uL [place] # (Auto) 1.17 H (0.00-1.00) K/uL Eos # (Auto) 0.05 (0.00-0.50) K/uL Baso # (Auto) 0.01 (0.00-0.20) K/uL Sodium 141 (136-145) mmol/L Potassium 4.1 (3.5-5.1) mmol/L Chloride 102 (98-107) mmol/L Carbon Dioxide 30.1 (21.0-32.0) mmol/L BUN 22 H (7-18) mg/dL Creatinine 0.83 (0.51-1.17) mg/dL Est Cr Clr Drug Dosing 84.11 mL/min Estimated GFR (MDRD) > 60 mL/min Glucose 121 H (74-106) mg/dL Lactic Acid 1.0 (0.4-2.0) mmol/L Calcium 8.4 L (8.5-10.1) mg/dL Total Bilirubin 0.6 (0.2-1.0) mg/dL AST 28 (15-37) U/L ALT 31 (12-78) U/L Alkaline Phosphatase 80 (46-116) IU/L Total Protein 6.5 (6.4-8.2) g/dL Albumin 3.5 (3.4-5.0) g/dL Specimen Type Urine Color Urine Appearance Urine pH (5.0-9.0) Ur Specific [place] (1.005-1.030) Urine Protein (NEGATIVE) mg/dL Urine Glucose (UA) (NEGATIVE) mg/dL Urine Ketones (NEGATIVE) mg/dL Urine Occult Blood (NEGATIVE) Urine Nitrite (NEGATIVE) Urine Bilirubin (NEGATIVE) Urine Urobilinogen (0.2-1.0) E.U./dL Ur Leukocyte Esterase (NEGATIVE) Urine RBC /HPF Urine WBC /HPF Ur Epithelial Cells /LPF Urine Bacteria (NONE TO FEW) /HPF 10/28/18 10/29/18 10/29/18 Range/Units 23:30 07:10 07:10 WBC 11.2 H (4.0-10.2) K/uL RBC 4.50 (3.77-5.09) M/uL Hgb 14.0 D (11.7-15.5) g/dL Hct 43.0 (34.0-46.0) % MCV 95.6 (84.0-98.0) fL MCH 31.1 (28.2-33.3) pg MCHC 32.6 (31.7-36.0) g/dL RDW 14.5 H (11.2-14.1) % Plt Count 151 (150-350) K/uL Neut % (Auto) 82.5 H (45.0-80.0) % Lymph % (Auto) 8.4 L (10.0-50.0) % [place] % (Auto) 8.3 (2.0-14.0) % Eos % (Auto) 0.6 (0.0-5.0) % Baso % (Auto) 0.2 (0.0-2.0) % Neut # (Auto) 9.21 H (1.40-7.00) K/uL Lymph # (Auto) 0.94 (0.50-3.50) K/uL [place] # (Auto) 0.93 (0.00-1.00) K/uL Eos # (Auto) 0.07 (0.00-0.50) K/uL Baso # (Auto) 0.02 (0.00-0.20) K/uL Sodium 140 (136-145) mmol/L Potassium 4.1 (3.5-5.1) mmol/L Chloride 103 (98-107) mmol/L Carbon Dioxide 29.8 (21.0-32.0) mmol/L BUN 21 H (7-18) mg/dL Creatinine 0.92 (0.51-1.17) mg/dL Est Cr Clr Drug Dosing 75.88 mL/min Estimated GFR (MDRD) > 60 mL/min Glucose 142 H (74-106) mg/dL Lactic Acid (0.4-2.0) mmol/L Calcium 8.1 L (8.5-10.1) mg/dL Total Bilirubin (0.2-1.0) mg/dL AST (15-37) U/L ALT (12-78) U/L Alkaline Phosphatase (46-116) IU/L Total Protein (6.4-8.2) g/dL Albumin (3.4-5.0) g/dL Specimen Type Urincc Urine Color Light yellow Urine Appearance Cloudy Urine pH 7.0 (5.0-9.0) Ur Specific [place] 1.015 (1.005-1.030) Urine Protein Negative (NEGATIVE) mg/dL Urine Glucose (UA) Negative (NEGATIVE) mg/dL Urine Ketones Negative (NEGATIVE) mg/dL Urine Occult Blood Large H (NEGATIVE) Urine Nitrite Negative (NEGATIVE) Urine Bilirubin Negative (NEGATIVE) Urine Urobilinogen 0.2 (0.2-1.0) E.U./dL Ur Leukocyte Esterase Trace H (NEGATIVE) Urine RBC 75-100 H /HPF Urine WBC 5-10 H /HPF Ur Epithelial Cells Many H /LPF Urine Bacteria Few (NONE TO FEW) /HPF Med Orders - Current: Current Medications Acetaminophen (Tylenol) 650 mg PO Q4H PRN PRN Reason: Pain (Mild 1-3)/fever Famotidine (Pepcid) 20 mg IVPUSH Q12H [facility] Hydrochlorothiazide (Hydrochlorothiazide) 25 mg PO DAILY [facility] Last Admin: 10/29/18 08:50 Dose: 25 mg Hydromorphone HCl (Dilaudid) 1 mg IVPUSH Q4H PRN PRN Reason: Pain (severe 7-10) Ceftriaxone Sodium 1 gm/ (Sodium Chloride) 100 mls @ 200 mls/hr IV Q12H [facility] Last Admin: 10/29/18 11:09 Dose: 200 mls/hr Lactated Ringer's (Ringers, Lactated) 1,000 mls @ 150 mls/hr IV ASDIRECTED [facility] Last Admin: 10/29/18 14:19 Dose: 150 mls/hr Ketorolac Tromethamine (Toradol) 15 mg IVPUSH Q6H PRN PRN Reason: Breakthrough Pain Losartan Potassium (Cozaar) 25 mg PO DAILY [facility] Last Admin: 10/29/18 08:51 Dose: 25 mg Metoprolol Tartrate (Lopressor) 12.5 mg PO Q12HR [facility] Last Admin: 10/29/18 08:51 Dose: 12.5 mg Ondansetron HCl (Zofran) 4 mg IVPUSH Q6H PRN PRN Reason: Nausea/Vomiting Sodium Chloride (Saline Flush) 10 ml FLUSH ASDIRECTED PRN PRN Reason: Keep Vein Open Last Admin: 10/28/18 23:35 Dose: 10 ml Sodium Chloride (Saline Flush) 10 ml FLUSH Q12HR [facility] Last Admin: 10/29/18 08:53 Dose: Not Given Tamsulosin HCl (Flomax) 0.4 mg PO DAILY [facility] Last Admin: 10/29/18 08:50 Dose: 0.4 mg Temazepam (Restoril) 15 mg PO BEDTIME PRN PRN Reason: Insomnia Tramadol HCl (Ultram) 50 mg PO Q4H PRN PRN Reason: Pain (moderate 4-6) Last Admin: 10/29/18 06:22 Dose: 50 mg Discontinued Medications Famotidine (Pepcid) 40 mg IVPUSH ONETIME ONE Stop: 10/28/18 21:47 Last Admin: 10/28/18 22:03 Dose: 40 mg Famotidine (Pepcid) 20 mg IVPUSH Q12H [facility] Hydromorphone HCl (Dilaudid) 1 mg IVPUSH ONETIME ONE Stop: 10/28/18 21:47 Last Admin: 10/28/18 22:03 Dose: 1 mg Lactated Ringer's (Ringers, Lactated) 1,000 mls @ 999 mls/hr IV .BOLUS ONE Stop: 10/28/18 22:45 Last Admin: 10/28/18 22:06 Dose: 999 mls/hr Ketorolac Tromethamine (Toradol) 30 mg IVPUSH ONETIME ONE Stop: 10/28/18 21:46 Last Admin: 10/28/18 22:01 Dose: 30 mg Ondansetron HCl (Zofran) 4 mg IVPUSH ONETIME ONE Stop: 10/28/18 21:47 Last Admin: 10/28/18 22:02 Dose: 4 mg
[2018-10-29] MEDS ORDERED: Famotidine 20 MG/2 ML SDV IVPUSH SCH ×2 (20:00→21:00)
== END 2018-10-29 17:25 ==
LOC: LL.ED 21:26 → UNDOADMOB 22:32 → LL.MS 22:32
PROVIDERS: ADMIT Family Medicine; ATTEND Emergency Medicine
DX: N20.2 Calculus of kidney with calculus of ureter (principal); K80.20 Calculus of gallbladder without cholecystitis without obstruction; K76.89 Other specified diseases of liver; K44.9 Diaphragmatic hernia without obstruction or gangrene; R91.1 Solitary pulmonary nodule; N28.1 Cyst of kidney, acquired; F41.8 Other specified anxiety disorders; M19.90 Unspecified osteoarthritis, unspecified site; E05.90 Thyrotoxicosis, unspecified without thyrotoxic crisis or storm; I49.3 Ventricular premature depolarization; I49.1 Atrial premature depolarization; I45.10 Unspecified right bundle-branch block; K21.9 Gastro-esophageal reflux disease without esophagitis; I25.2 Old myocardial infarction; E78.00 Pure hypercholesterolemia, unspecified; I10 Essential (primary) hypertension; I44.2 Atrioventricular block, complete; I35.0 Nonrheumatic aortic (valve) stenosis; Z71.6 Tobacco abuse counseling; Z88.0 Allergy status to penicillin; Z88.8 Allergy status to other drugs, medicaments and biological substances; Z79.899 Other long term (current) drug therapy
CPT/HCPCS: 36415; 76770; 80048; 80053; 81001; 83605; 85025; 87086; 96361; 96365; 96366; 96374; 96375; 99285-25; A9270-GY; G0378; J0696; J1170; J1885; J2405; J3490; J7050; J7120